=== PATIENT | male | born 1930 | race Caucasian/White ===

== ENCOUNTER 2017-01-21 08:44 | Inpatient (IN) ==
[2017-01-21] MEDS ORDERED: ASPIRIN 325 MG TABLET PO STA (09:18)
--- NOTE | 2017-01-21 09:20 | EKG Report ---
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
[2017-01-21] MEDS ORDERED: ASPIRIN 325 MG TABLET ONE (09:22)
[2017-01-21 09:25] LABS: Basophils % 0.3 % (0.0-0.8); Eosinophils # 1.4 10*3/uL (0.0-0.87); Eosinophils % 14.2 % (0.00-10.9); Hematocrit 40.1 VOL% (42.0-52.0); Hemoglobin 13.4 GM/DL (14.0-18.0); Immature Granulocytes % 0.2 %; Immature Granulocytes Absolute 0.02 #; Lymphocytes # 3.2 10*3/uL (1.4-4.0); Lymphocytes % 32.2 % (21.2-54.2); Mean Corpuscular HGB Conc 33.4 GM/DL (32-36); Mean Corpuscular Hemoglobin 30 PG (27-34); Mean Corpuscular Volume 90.5 FL (87-102); Monocytes # 0.6 10*3/uL (0.11-0.8); Monocytes % 6.1 % (1.7-12.7); Neutrophils # 4.7 10*3/uL (1.4-7.4); Platelet Count 169 T/CUMM (130-400); Red Blood Count 4.43 MC/CUMM (3.8-5.5); Red Cell Distribution Width 13.1 % (9.3-17.3)
--- NOTE | 2017-01-21 09:27 | Emergency Department Note ---
Arturo Logan Gwan, am scribing for, and in the presence of, Minh Ovalles MD 09:21 . Charlette Logan James D, MD, personally performed the services described in this documentation, ascribed by Fabian Morris in my presence, and it is both accurate and complete 925 . Arrival - Arrival Chief Complaint: Chest Pain Stated Complaint: heart rate low;sent over by [facility] Nursing Triage Note: pain in center of chest that started last night at rest[facility] for [facility] heart rate. pt reports sob and feeling tired too. Mode of Arrival: Wheelchair Limitations: No Limitations Source: Patient, Old Records Reviewed, RN Notes Reviewed - History of Present Illness HPI Narrative: Pt is a 86 y/o male who presents to the ED with a c/o chest pain with an onset 2300 last night. Patient stated [facility] and was prompted to report to the ED for further evaluation of bradycardia. His associated sxs have been SOB, lightheadedness when he stands up and fatigue. Patient confirmed that he is being followed by physicians at [facility] in [place]. He denies being on any blood thinners. Pt has a PMHx of cardiac dysrhythmia, HTN, dyslipidemia and hiatal hernia. No other problems/complaints reported in ED. Consistency: constant Severity: moderate Allergies/Adverse Reactions: Allergies Allergy/AdvReac Type Severity Reaction Status Date / Time Penicillins Allergy Unknown/Unable Verified 01/21/17 08:51 to obtain Review of System - Review of System 12 point system: reviewed and no additional remarkable complaints except as stated - Review of System Constitutional: Absent: chills, diaphoresis, fever Eyes: Absent: discharge, pain Head/Ears/Nose/Throat: Absent: earache Respiratory: Present: as per HPI, other (shortness of breathe) Cardiovascular: Present: as per HPI, chest pain Gastrointestinal: Absent: abdominal pain, nausea, vomiting, diarrhea Genitourinary male: Absent: urgency, dysuria Musculoskeletal: Absent: arm pain, back pain, leg pain, neck pain Skin: Absent: rash Neurological: Absent: headache, weakness Medical,Surgical,& Family Hx - Medical History Cardio: History of: Cardiac Dysrhythmia, Hypertension Endocrine: History of: Dyslipidemia Gastrointestinal: History of: GI Problems (hiatal hernia) - Social History Smoking Status: Former smoker Exam Physical Examination: GENERAL: This is a well-nourished, well-developed white male in no apparent distress. VITAL SIGNS: HEENT: Head is normocephalic and atraumatic. Pupils are equally round and reactive to light. Extraocular movement are intact. Oropharynx is benign with moist mucous membranes. NECK: Neck is soft and supple without tenderness. There are no masses. There is no lymphadenopathy. LUNGS: Lungs are clear to auscultation bilaterally. Chest rises symmetrically. There is no chest wall tenderness. CV: Heart is slow rate and rhythm without murmurs, rubs, or gallops. ABDOMEN: Abdomen is soft, non-tender to palpation. There are no abnormal masses palpated. There is no organomegaly. Bowel sounds are present and active. SKIN: Skin is warm and dry. No rash. EXTREMITIES: Patient has full range of motion without tenderness. There is no pedal edema. NEUROLOGIC: Awake, alert, and oriented x4. Cranial nerves II through XII are grossly intact. There are no motorsensory deficits. PSYCHIATRIC: Normal affect. Normal mood. Vital Signs: Vital Signs Temperature 97.1 F L 01/21/17 08:47 Pulse Rate 35 L 01/21/17 10:30 Respiratory Rate 18 01/21/17 10:30 Blood Pressure 170/62 01/21/17 10:30 O2 Sat by Pulse Oximetry 98 01/21/17 10:30 Course - Consultations Consultation #1: Discussed with Dr. Thorne. Patient will be seen in the emergency department. Time: 09:27 Results - Labs CBC & BMP: 01/21/17 09:03 01/21/17 09:03 Lab Results: I have reviewed the patients labs Labs: Laboratory Tests 01/21/17 01/21/17 09:03 09:03 WBC 10.0 RBC 4.43 Hgb 13.4 L Hct 40.1 L Plt Count 169 Eos % (Auto) 14.2 H Eos # (Auto) 1.4 H Segmented Neutrophils 42 L Eosinophils 14 H INR 1.1 PT Patient/Control Mix 11.2 Circ Anticoag PTT 26.3 Laboratory Tests 01/21/17 09:03 Sodium 138 Potassium 4.2 Chloride 107 Carbon Dioxide 25 BUN 22 H Creatinine 1.20 Glucose 140 H Laboratory Tests 01/21/17 09:03 TSH 3rd Generation 2.980 - EKG EKG results: interpreted by ERMD - Impressions EKG: Complete heart block with ventricular rate of 38, atrial rate is 100. - Diagnostic Findings Procedure: Chest x-ray: image reviewed by me (Mild cardiomegaly, no infiltrates , no pleural effusions.) Disposition Clinical Impression: Third degree AV block Case discussed with: patient Disposition: Still a Patient Condition: Guarded Time of Disposition: 09:26
[2017-01-21 09:36] LABS: INR 1.1; PT Patient Result 11.2 SECS; Partial Thromboplastin Time 26.3 SECS (0-40)
--- NOTE | 2017-01-21 09:42 | XRay Report ---
Referring Physician: Minh Ovalles Exam: XR chest 1V portable Date: January 21, 2017 at 9:27 AM Reason: Chest pain Comparison: Chest 2 views May 28, 2016 Findings: The cardiac silhouette is borderline enlarged, and there is minimal bibasilar atelectasis. No pneumothorax or pleural effusion is identified. No acute osseous process is seen. Impression: 1. The cardiac silhouette is borderline enlarged. This could reflect borderline cardiomegaly or a mild pericardial effusion. 2. Minimal bibasilar atelectasis. PROCEDURE INTERPRETED AT [facility] DEPARTMENT OF RADIOLOGY Final Report Signed by: Dr. Chayito Whalen
[2017-01-21 09:55] LABS: Eosinophils 14 % (0-10); Lymphocytes 30 % (20-55); Segmented Neutrophils 42 % (50-85); Total Cells Counted 100
[2017-01-21 09:56] LABS: Hypochromasia 1+; Platelet Estimate Normal
[2017-01-21 10:00] LABS: Albumin 3.8 G/DL (3.4-5.0); Bilirubin,Total 0.7 MG/DL (0.2-1.0); Osmolality,Calculated 279.7 MOS/KG (273-304); Potassium 4.2 MMOL/L (3.5-5.1); Total Protein 7.3 G/DL (6.4-8.3)
[2017-01-21] MEDS ORDERED: MAGNESIUM SULF RIDER 2 GM in PREMIX 1 EACH IV PRN (10:00)
[2017-01-21] MEDS ORDERED: ZALEPLON 5 MG CAPSULE PO PRN (10:00)
[2017-01-21] MEDS ORDERED: DOCUSATE SODIUM 100 MG CAPSULE PO PRN (10:00)
[2017-01-21] MEDS ORDERED: ONDANSETRON 4 MG/2 ML VIAL IV PRN (10:00)
[2017-01-21] MEDS ORDERED: MAGNESIUM SULF RIDER 4 GM in PREMIX 1 EACH IV PRN (10:00)
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
[2017-01-21] MEDS ORDERED: ATORVASTATIN 20 MG TABLET PO STA (10:25)
[2017-01-21] MEDS ORDERED: ceFAZolin 1,000 MG VIAL IRRIG ONE (11:33)
[2017-01-21] MEDS: LOSARTAN 50 MG TABLET PO SCH (11:51)
[2017-01-21] MEDS: MAGNESIUM OXIDE 400 MG TABLET PO SCH (11:52)
[2017-01-21] MEDS: ISOSORBIDE MONONITRATE 30 MG TABLET PO SCH (11:52)
[2017-01-21] MEDS ORDERED: DEXTROSE 5% NACL 0.45% 1,000 ML IV SCH (12:00)
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
--- NOTE | 2017-01-21 13:16 | EKG Report ---
Stationary ECG Study 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
[2017-01-21] MEDS ORDERED: VANCOMYCIN 500 MG VIAL IRRIG ONE (13:24)
[2017-01-21] MEDS ORDERED: VANCOMYCIN INJ 1,000 MG in SODIUM CHLORIDE 0.9% 250 ML IV ONE (13:24)
--- NOTE | 2017-01-21 15:07 | EKG Report ---
Stationary ECG Study [facility] Test Date: 01/21/2017 3:08:01 PM Pat Name: SHANI FRASER Department: Room: 130 Gender: M Cath Laboratory Technician: PIERRE : 1930 Requested by: Minh Pa Order Number: [id number] Reading MD: HORTENCIA CRUZ Intervals [place] Rate: 35 P: 999 [place]: 0 QRS: 102 QRSD: 153 T: -81 QT: 579 QTc: 479 Interpretive Statements SINUS RHYTHM WITH THIRD DEGREE AV BLOCK MARKED RIGHT AXIS DEVIATION INTRAVENTRICULAR CONDUCTION DELAY Electronically Signed On 01-24-17 10:29:07 CDT by HORTENCIA CRUZ [id number]
--- NOTE | 2017-01-21 15:07 | History and Physical Update ---
Sedation H&P Update - History and Physical H&P was reviewed, the patient examined and there: are no changes in the patients condition since last H&P was completed. - Dictation Physical: refer to H&P completed by admitting physician - Physical Exam Mental Status: alert and oriented Heart: other (bradycardia) Lung: clear to auscultation Abdomen: within normal limits Vitals: within normal limits - Sedation Plan for Sedation: moderate Patient Consent: Procedure disscussed with patient and patinet has consented., Risks and benefits were discussed with patient,including infection,, bleeding, injury to surrounding structures, seizure, temporary nerve, Patient understands and accepts potential risks/benefits and agrees to ASA Class: IV Airway Assessment: Class II: Soft palate, uvula, fauces visible
[2017-01-21] MEDS ORDERED: HEPARIN/NACL 0.9% 2 UNITS/ML 500 ML IV ONE (15:34)
[2017-01-21] MEDS ORDERED: LIDOCAINE 1% 20 ML VIAL ONE (15:35)
[2017-01-21] MEDS ORDERED: VANCOMYCIN 500 MG VIAL ONE (15:36)
[2017-01-21] MEDS ORDERED: MIDAZOLAM 2 MG/2 ML VIAL ONE (15:47)
[2017-01-21] MEDS ORDERED: fentaNYL 100 MCG/2 ML VIAL ONE (15:48)
[2017-01-21] MEDS ORDERED: TISSUE ADHESIVE 1 EACH APPLICATOR TOP ONE (16:52)
[2017-01-21] MEDS ORDERED: oxyCODONE/ACETAMINOPHEN 5-325 MG TABLET PO PRN (17:00)
--- NOTE | 2017-01-21 17:11 | Cardiac Pacemaker ---
- Preoperative diagnosis Date of Procedure:: 01/21/17 Preoperative Diagnosis: Documented nonreversible symptomatic bradycardia due to , third degree atrioventricular block Post-op diagnosis: same Procedure: PROCEDURE SUMMARY DDD pacemaker implant from left cephalic vein access. PLAN Bed rest for 4 hours. Routine post pacemaker implant site care and activity restrictions. Do not remove pressure dressing until AM. Portable CXR, EKG stat. CXR PA/Lat, device interrogation in AM. Vancomycin 1g iv. x1. PROCEDURE Informed consent was obtained and a timeout was performed prior to the procedure. The patient was continuously monitored by ECG, pulse oxymetry and NIBP. 1g iv. Vancomycin was administered prior to the procedure for antibiotic prophylaxis. Moderate conscious sedation was initiated and maintained with iv. Versed and Fentanyl, for 65 minutes. The left pectoral area was meticulously prepared with ChloroPrep surgical scrub. Sterile draping was applied and Ioban was used to cover the operation site. The image intensifier was draped with a sterile bag and positioned over the patient's chest. After infiltration with 1% lidocaine, an incision was made in the left infraclavicular area, parallel to the deltopectoral groove. The incision was carried down to the level of the pectoral fascia. A subcutaneous pocket was then created with electrocautery and blunt dissection. Hemostasis was then achieved with electrocautery. The cephalic branch of the left axillary vein was isolated, as it coursed in the deltopectoral groove, and circumferential ties were placed around it. The distal tie was ligated. A small venotomy was performed, and a long hydrophylic guidewire was introduced and advanced into the inferior vena cava. A 9 Fr sheath was introduced over the guidewire. The dilator was removed. The right ventricular pacemaker lead was introduced through the sheath. The sheath was then peeled away. The curved stylet was used to move the lead into the right ventricular outflow tract. The stylet was then replaced with a straight stylet and the lead was moved into a stable position on the right ventricular septum. Adequate sensing and pacing threshold was confirmed. The active fixation mechanism was then deployed. Stable signal and pacing threshold was noted, with decrease in pacing impedance. No extracardiac stimulation was noted with high output pacing. The lead was then anchored to the subcutaneous tissue with 2-0 nonabsorbable suture, using the anchoring sleeve near the point of entry to the vein. Another 9 Fr sheath was introduced over the retained guidewire. The dilator was removed. The right atrial pacemaker lead was introduced through the sheath. The sheath was then peeled away. A straight stylet was used to move the lead into the right atrium. The stylet was then replaced with a curved J stylet and the lead was moved into a stable position in the right atrial appendage. Adequate sensing and pacing threshold was confirmed. The active fixation mechanism was then deployed. Stable signal and pacing threshold was noted, with decrease in pacing impedance. No extracardiac stimulation was noted with high output pacing. The lead was then anchored to the subcutaneous tissue with 2-0 nonabsorbable suture, using the anchoring sleeve near the point of entry to the vein. The retained guidewire was removed. The proximal tie on the cephalic vein was then ligated to provide hemostasis. The pacemaker generator was attached to the leads and sealed in the prescribed manner. The wound was flushed with Vancomycin . The generator was placed into the pocket and tied to the pectoral fascia using 2-0 nonabsorbable suture. Stable lead positions were confirmed with fluoroscopy. The wound was closed using a double layer of 2-0 absorbable Vicryl sutures, followed by a subcuticular running suture with 4-0 Monocryl, then Exofin. A sterile, then a pressure dressing was applied. The device was then interrogated and programmed as detailed below. Device Type SN Location Medtronic Advisa DR DDD pacemaker [id number] Left infraclavicular Lead Position Type SN P/R Threshold Impedance RA RA appendage Medtronic 5076-52 [id number] 4.4 mV 0.6 V @ 0.5 ms 670 Ohm RV RV septum Medtronic 5076-58 [id number] 10.3 mV 0.6 V @ 0.5 ms 760 Ohm Bradycardia settings DDDR 60/110 The implanted system is MRI conditional. Anesthesia: moderate conscious sedation Surgeon / Physician: Vern Blake E Commerce Developer: other (Lynn) Estimated blood loss: minimal Specimens: none sent Condition: stable Disposition: ICU/CCU - Medications / Follow-up
--- NOTE | 2017-01-21 17:15 | History and Physical Update ---
Sedation H&P Update - History and Physical H&P was reviewed, the patient examined and there: are no changes in the patients condition since last H&P was completed. - Dictation Physical: refer to H&P completed by admitting physician - Physical Exam Mental Status: alert and oriented Heart: regular rate and rhythm Lung: clear to auscultation Abdomen: within normal limits Vitals: within normal limits - Sedation Plan for Sedation: minimal Patient Consent: Procedure disscussed with patient and patinet has consented., Risks and benefits were discussed with patient,including infection,, bleeding, injury to surrounding structures, seizure, temporary nerve, Patient understands and accepts potential risks/benefits and agrees to, proceed. ASA Class: II Airway Assessment: Class II: Soft palate, uvula, fauces visible
--- NOTE | 2017-01-21 18:12 | XRay Report ---
History: Pacemaker lead placement Date: 01/21/2017 at 5:32 PM Study: Chest x-ray AP portable Comparison exam: 01/21/2017 at 9:29 AM A left subclavian dual lead transvenous pacemaker device is in generally satisfactory position and is generally intact. There is no evidence of pneumothorax. The mediastinal contours are stable. The pulmonary vasculature is not engorged. There is stable mild cardiomegaly. The lungs are well expanded and generally clear. There is no gross pleural effusion. There is [id number] thoracic spondylosis. Impression: No evidence of a pneumothorax following pacemaker placement. Otherwise unchanged PROCEDURE INTERPRETED AT [facility] [place] DEPARTMENT OF RADIOLOGY Final Report Signed by: Dr. Flavia Wolf
[2017-01-21 18:51] LABS: Magnesium 1.9 MG/DL (1.8-2.4)
[2017-01-21 18:59] LABS: Troponin I Only 0.148 NG/ML (0.00-0.045)
[2017-01-22] MEDS ORDERED: VANCOMYCIN INJ 1,000 MG in SODIUM CHLORIDE 0.9% 250 ML IV ONE (05:01)
[2017-01-22 05:35] LABS: Basophils % 0.3 % (0.0-0.8); Eosinophils # 1.1 10*3/uL (0.0-0.87); Eosinophils % 10.5 % (0.00-10.9); Hematocrit 39.5 VOL% (42.0-52.0); Hemoglobin 13.1 GM/DL (14.0-18.0); Immature Granulocytes % 0.3 %; Immature Granulocytes Absolute 0.03 #; Lymphocytes # 2.5 10*3/uL (1.4-4.0); Lymphocytes % 23.1 % (21.2-54.2); Mean Corpuscular HGB Conc 33.2 GM/DL (32-36); Mean Corpuscular Hemoglobin 30 PG (27-34); Mean Corpuscular Volume 89.8 FL (87-102); Monocytes # 0.7 10*3/uL (0.11-0.8); Monocytes % 6.5 % (1.7-12.7); Neutrophils # 6.3 10*3/uL (1.4-7.4); Neutrophils % 59.3 % (38.7-73.9); Platelet Count 153 T/CUMM (130-400); Red Cell Distribution Width 12.9 % (9.3-17.3); White Blood Count 10.6 T/CUMM (4-12)
[2017-01-22 06:14] LABS: Albumin 3.3 G/DL (3.4-5.0); Bilirubin,Total 0.8 MG/DL (0.2-1.0); Calcium 8.3 MG/DL (8.5-10.1); Osmolality,Calculated 287.8 MOS/KG (273-304); Potassium 4.1 MMOL/L (3.5-5.1); Risk Ratio 2.4; Total Protein 6.1 G/DL (6.4-8.3); VLDL CHOLESTEROL 13.4 MG/DL
[2017-01-22 06:15] LABS: Calcium 8.2 MG/DL (8.5-10.1); Magnesium 1.8 MG/DL (1.8-2.4)
--- NOTE | 2017-01-22 06:54 | XRay Report ---
2 view chest. Indication: Pacemaker revision. Comparison: January 21, 2017. The heart is mildly enlarged with left ventricular hypertrophy. Cardiac hardware appears to be in satisfactory position. The pulmonary vasculature is normal. The lung lebron are hyperexpanded and fibrotic changes are noted. No consolidation, pneumothorax, or pleural effusion. Demineralization and degenerative change involving the spinal column and shoulders. Impression: No acute abnormality. PROCEDURE INTERPRETED AT [facility] DEPARTMENT OF RADIOLOGY Final Report Signed by: Dr. Maria Eugenia Phillips
--- NOTE | 2017-01-22 07:54 | EKG Report ---
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
--- NOTE | 2017-01-22 08:22 | ECHO Report ---
Daniel Peterson Exam Date: 01/21/2017 11:41 Referring Physician: Technologist: Adelaide Oakley RDCS Age: 86 Ht (in): 69 Wt (lb): 154 Gender: M Exam Location: [facility] Echo Indications: Atrioventricular block, complete, Chest pain, unspecified, Essential (primary) hypertension, Chronic fatigue, unspecified, Shortness of breath, Dyslipidemia BP: 175 / 62 HR: 36 Rhythm: Other Technical Quality: Fair IMPRESSIONS At least moderately reduced LV systolic function with regional wall motion as described below. Ejection fraction 30-40%. Diastolic parameters unable to be assessed due to underlying heart block. Mild biatrial enlargement. Mild concentric left ventricular hypertrophy. Mild mitral and tricuspid regurgitation. MEASUREMENTS (Male / Female) Normal Values 2D ECHO LV Diastolic Diameter PLAX 4.5 cm 4.2 - 5.9 / 3.9 - 5.3 cm LV Systolic Diameter PLAX 3.3 cm LV Fractional Shortening PLAX 27.0 % IVS Diastolic Thickness 1.3 cm 0.6 - 1.0 / 0.6 - 0.9 cm LVPW Diastolic Thickness 1.3 cm 0.6 - 1.0 / 0.6 - 0.9 cm RV Internal Dim ED PLAX 3.7 cm Aortic Root Diameter 2.9 cm LA Systolic Diameter LX 4.7 cm 3.0 - 4.0 / 2.7 - 3.8 cm DOPPLER TR Peak Velocity 384.0 cm/s TR Peak Gradient 59.0 mmHg FINDINGS Left Ventricle Normal left ventricular cavity size. Mild left ventricular hypertrophy. Profound bradycardia hinders regional wall motion assessment, but overall Left ventricular ejection fraction is estimated at 30-40%. The apex and adjacent distal eaton appear severely hypokinetic if not akinetic. Right Ventricle The right ventricle is normal in size and function. Right Atrium Moderately increased right atrial size. Left Atrium Moderately increased left atrial size. Mitral Valve Morphologically normal mitral valve. Mild mitral valve regurgitation. Aortic Valve Morphologically normal aortic valve without significant sclerosis or stenosis. There is no aortic regurgitation. Tricuspid Valve Morphologically normal tricuspid valve. Mild tricuspid valve regurgitation. Tricuspid regurgitation velocities suggest a PAP of 69 mmHg. Pulmonic Valve Morphologically normal pulmonic valve without significant stenosis. There is no pulmonic regurgitation. Pericardium Normal pericardium without effusion. Aorta Normal ascending aorta dimension. Coby Thorne MD (Electronically Signed) Final Date: 22 January 2017 08:20
[2017-01-22] MEDS: ISOSORBIDE MONONITRATE 30 MG TABLET PO SCH (08:26)
[2017-01-22] MEDS: LOSARTAN 50 MG TABLET PO SCH (08:27)
[2017-01-22] MEDS: PANTOPRAZOLE 40 MG TABLET PO SCH (08:27)
[2017-01-22] MEDS: MAGNESIUM OXIDE 400 MG TABLET PO SCH (08:27)
--- NOTE | 2017-01-22 08:42 | Electrophysiology Progress Not ---
Assessment and Plan (1) Third degree AV block Status: Acute Assessment and plan: 86-year-old male, with symptomatic bradycardia, complete heart block, escape rhythm of 75 bpm, with IVCD. Hypertension, hyperlipidemia. Cardiomyopathy. 01/21/2017: DDD PM implant from L cephalic access -Follow-up device interrogation. -Start metoprolol 25 mg twice daily for cardiomyopathy, suspected CAD. -Continue Cozaar. -Ischemia evaluation pending. -Keep the occlusive dressing in place for 6 more days, keep the implant site dry. -Follow-up with EP in 1 week. Current Visit: Yes (2) Hypertension Status: Chronic Current Visit: Yes (3) Dyslipidemia Status: Chronic Current Visit: Yes (4) Chest pain Status: Acute Current Visit: Yes Electrophysiology Subjective Interval history: He is feeling better. No chest pain. No pacemaker hematoma. Removed the pressure dressing. Chest x-ray, telemetry shows normal lead positions and device function. The device interrogation pending. Exam - Constitutional Vitals: Period Temp Pulse Resp BP Sys/Barry Pulse Ox Last 24 Hr 96.8 F-98.4 F 35-77 10-35 108-205/42-95 91-98 General appearance: normal weight, no acute distress - Head Head exam: Present: normal inspection, normocephalic - Eye Eye exam: Absent: conjunctival injection Pupils: Absent: dilated - ENT ENT exam: Present: normal external ear exam - Neck Neck exam: Present: normal inspection - Respiratory Respiratory exam: Present: clear to auscultation bilaterally - Cardiovascular Cardiovascular exam: Present: regular rate and rhythm - GI/Abdominal GI/Abdominal exam: Present: normal bowel sounds, soft. Absent: distended - Extremities Exam Extremities exam: Present: normal inspection, normal capillary refill. Absent: edema - Neurological Exam Neurological exam: Present: alert, oriented X3 - Psychiatric Psychiatric exam: Present: normal affect, normal mood - Skin Skin exam: Present: normal color, warm. Absent: cyanosis Results - Labs CBC & BMP: 01/22/17 05:25 01/22/17 05:25 Lab Results: I have reviewed the past 24 hour labs Quality Measures - VTE Contraindication to Pharmacological VTE Prophylaxis: High Risk of Bleeding - Stroke Symptom Onset Unknown: No Specialty Discharge - Follow Up or Referrals - Speciality Discharge Instructions Cardiology Instructions: FU with EPdr. Blake in 1 week
[2017-01-22] MEDS: METOPROLOL TARTRATE 25 MG TABLET PO SCH ×2 (09:17→20:19)
[2017-01-22] MEDS ORDERED: SODIUM CHLORIDE 0.9% 1,000 ML IV SCH ×2 (10:00→11:47)
[2017-01-22] MEDS ORDERED: diphenhydrAMINE CAP 50 MG CAPSULE PO ONE (10:30)
[2017-01-22] MEDS ORDERED: DIAZEPAM 5 MG TABLET PO ONE (10:30)
[2017-01-22] MEDS ORDERED: LIDOCAINE 1% 20 ML VIAL ONE (10:36)
[2017-01-22] MEDS ORDERED: MEPERIDINE 25 MG/1 ML VIAL ONE (10:36)
[2017-01-22] MEDS ORDERED: MIDAZOLAM 2 MG/2 ML VIAL ONE (10:36)
[2017-01-22] MEDS ORDERED: ASPIRIN 325 MG TABLET ONE (10:53)
[2017-01-22] MEDS ORDERED: HEPARIN 5,000 UNIT/1 ML VIAL ONE (11:05)
[2017-01-22] MEDS ORDERED: ACETAMINOPHEN/CODEINE 300-30 MG TABLET PO PRN (11:43)
--- NOTE | 2017-01-22 11:53 | Operative Note ---
Date of procedure: 01/22/17 Procedure Preformed: Left heart cath Coronary angiography Left ventriculography Angiogram of the right femoral artery Angio-Seal of the right femoral artery-successful Surgeon / Physician: Lucho Gambino Curriculum Designer: Abdiel Leblanc Post-op diagnosis: same (Progressive angina, abnormal EKG) Findings: Impression: Significant disease at the bifurcation of the PDA/posterolateral and there is also disease distal to that area in the rca-this is a large vessel, but is heavy calcification and some moderate tortuosity before these lesions, making it a difficult lesion to do PCI Moderate distal distal left main disease--? 40%, smooth Some ventricularization of pressure with engagement of the left main-however angiographically appears the patient does not have critical ostial left main disease Moderate disease in LAD--- 50-60%, tandem Critical disease in a small circumflex-1 mm in diameter 90%, vessel which is too small to do PCI-- Moderate global left ventricular systolic dysfunction, LVEF 35-40% Mild to moderate mitral regurgitation Low LVEDP, 0 mmHg Angiogram the right femoral artery Angio-Seal of the right femoral artery- successful Plan/recommendations: The patient will have risk factors optimized. The patient will be on antiplatelet medications to include aspirin indefinitely . I will have Dr. Thorne reviewed the angiograms. She can assess whether a difficult intervention of the right coronary could be considered versus considering bypass versus medical therapy. Follow-up will be scheduled. Addenda: I saw the patient post-cath. the groin puncture site and distal pulse are stable. vital signs are stable and the patient will be observed closely overnight. Specimens: none sent Estimated blood loss: minimal Condition: stable Anesthesia: local, conscious sedation Disposition: ICU
--- NOTE | 2017-01-22 11:56 | Cardiology Operative Report ---
Date of Procedure:: 01/22/17 Post-op diagnosis: same (Progressive angina, abnormal EKG) Procedure: Date of procedure: 01/22/17 Procedure Preformed: Left heart cath Coronary angiography Left ventriculography Angiogram of the right femoral artery Angio-Seal of the right femoral artery-successful Surgeon / Physician: Lucho Gambino Computational Sciences Professor: Abdiel Leblanc Post-op diagnosis: same (Progressive angina, abnormal EKG) procedure: The patient was prepped and draped in usual manner. Entered the right femoral artery via the Seldinger technique. I used a sheath and then used a JL4 and engaged left coronary. Multiple views were taken. I then exchanged for a JR4. Multiple views of the right coronary were taken. I then exchanged for an angled pigtail. I crossed the valve. Left ventricular end-diastolic pressures measured. Left ventriculography was done. Left ventricle pullback was done. The catheters were then removed from the patient. Please see the cath data sheets for the details of catheters used. Complications: None Hemodynamic data: LVEDP was 0 mmHg. Angiographic data: The left main coronary was large and had a mild to moderate distal lesion. It was 40% narrowed and smooth. The left anterior descending artery was moderate to large size. It was heavily calcified in the proximal mid part/segment. There were tandem 50 to at most 60 % lesions. Moderate. Otherwise, there are minimal luminal irregularities. The left circumflex system was small. There was a proximal 80% narrowing of the vessel is diminutive. It is less than 1.5 mm in diameter. The right coronary artery was large in size, dominant vessel with the PDA. It was at least moderately calcified in the proximal and mid segment with at least a moderate amount of tortuosity. At the PDA/posterolateral bifurcation, there is a 90% narrowing in each branch of this lesion. Also, going off the posterolateral, there is another lesion in the midportion which supplied some of the posterior lateral wall. Right coronary artery was a large which is why the circumflex was so diminutive. CARRASCO left ventriculography revealed abnormal global/regional left ventricle systolic function. Overall ejection fraction was about 35-40%. There is mild to moderate mitral regurgitation. Angiogram of the right femoral artery revealed the puncture site to be in a large vessel, above the bifurcation. It was suitable for Angio-Seal. Impression: Significant disease at the bifurcation of the PDA/posterolateral and there is also disease distal to that area in the rca-this is a large vessel, but is heavy calcification and some moderate tortuosity before these lesions, making it a difficult lesion to do PCI Moderate distal distal left main disease--? 40%, smooth Some ventricularization of pressure with engagement of the left main-however angiographically appears the patient does not have critical ostial left main disease Moderate disease in LAD--- 50-60%, tandem Critical disease in a small circumflex-1 mm in diameter 90%, vessel which is too small to do PCI-- Moderate global left ventricular systolic dysfunction, LVEF 35-40% Mild to moderate mitral regurgitation Low LVEDP, 0 mmHg Angiogram the right femoral artery Angio-Seal of the right femoral artery- successful Plan/recommendations: The patient will have risk factors optimized. The patient will be on antiplatelet medications to include aspirin indefinitely . I will have Dr. Thorne reviewed the angiograms. She can assess whether a difficult intervention of the right coronary could be considered versus considering bypass versus medical therapy. Follow-up will be scheduled. Addenda: I saw the patient post-cath. the groin puncture site and distal pulse are stable. vital signs are stable and the patient will be observed closely overnight. Specimens: none sent Estimated blood loss: minimal Condition: stable Anesthesia: local, conscious sedation Disposition: ICU Additional CC's: Coby Thorne Anesthesia: local, moderate conscious sedation Surgeon / Physician: Lucho Gambino Computational Sciences Professor: other Estimated blood loss: minimal Specimens: none sent Condition: stable Disposition: ICU/CCU
[2017-01-22] MEDS: ALUMINUM/MAGNES/SIMETH MAX STR 30 ML UDCUP PO PRN (16:13)
--- NOTE | 2017-01-22 16:19 | EKG Report ---
Stationary ECG Study [facility] Test Date: 01/22/2017 4:20:52 PM Pat Name: SHANI FRASER Department: Room: 130 Gender: M Licensed Direct Entry Midwife: MALVIN : 1930 Requested by: Terrie Person Order Number: [id number] Reading MD: SALUD REID Intervals [place] Rate: 72 P: 67 MA: 191 QRS: 77 QRSD: 175 T: -85 QT: 475 QTc: 499 Interpretive Statements ELECTRONIC VENTRICULAR PACEMAKER ABNORMAL RHYTHM ECG Electronically Signed On 01-24-17 15:15:06 CDT by SALUD REID [email or web address]
[2017-01-22 17:37] LABS: Troponin I Only 0.055 NG/ML (0.00-0.045)
--- NOTE | 2017-01-22 20:31 | EKG Report ---
Stationary ECG Study [facility] Test Date: 01/22/2017 8:32:41 PM Pat Name: SHANI FRASER Department: Room: 130 Gender: M Lead Mobile Developer: AM : 1930 Requested by: Terrie Person Order Number: [id number] Reading MD: SALUD REID Intervals [place] Rate: 73 P: 55 DC: 190 QRS: 58 QRSD: 174 T: 236 QT: 469 QTc: 496 Interpretive Statements ELECTRONIC VENTRICULAR PACEMAKER ABNORMAL RHYTHM ECG Electronically Signed On 01-24-17 15:20:57 CDT by SALUD REID [email or web address]
[2017-01-22 23:35] LABS: Troponin I Only 0.076 NG/ML (0.00-0.045)
[2017-01-23 06:20] LABS: Basophils % 0.2 % (0.0-0.8); Eosinophils # 1.1 10*3/uL (0.0-0.87); Eosinophils % 9.2 % (0.00-10.9); Hematocrit 37.7 VOL% (42.0-52.0); Hemoglobin 12.8 GM/DL (14.0-18.0); Immature Granulocytes % 0.3 %; Immature Granulocytes Absolute 0.04 #; Lymphocytes # 2.8 10*3/uL (1.4-4.0); Lymphocytes % 24.5 % (21.2-54.2); Mean Corpuscular Hemoglobin 30 PG (27-34); Mean Corpuscular Volume 88.7 FL (87-102); Mean Platelet Volume 11.5 FL (9.6-12.0); Monocytes # 0.8 10*3/uL (0.11-0.8); Monocytes % 7.2 % (1.7-12.7); Neutrophils # 6.7 10*3/uL (1.4-7.4); Neutrophils % 58.6 % (38.7-73.9); Platelet Count 151 T/CUMM (130-400); Red Blood Count 4.25 MC/CUMM (3.8-5.5); Red Cell Distribution Width 12.8 % (9.3-17.3); White Blood Count 11.5 T/CUMM (4-12)
[2017-01-23 06:54] LABS: Troponin I Only 0.076 NG/ML (0.00-0.045)
[2017-01-23 06:56] LABS: Calcium 7.9 MG/DL (8.5-10.1); Magnesium 2.1 MG/DL (1.8-2.4); Osmolality,Calculated 283.1 MOS/KG (273-304); Potassium 4.1 MMOL/L (3.5-5.1)
--- NOTE | 2017-01-23 07:47 | EKG Report ---
Stationary ECG Study [facility] Test Date: 01/23/2017 7:12:47 AM Pat Name: SHANI FRASER Department: Room: 130 Gender: M Program Development Specialist: PIERRE : 1930 Requested by: Terrie Person Order Number: [id number] Reading MD: SALUD REID Intervals [place] Rate: 67 P: 58 CA: 181 QRS: 71 QRSD: 169 T: 245 QT: 483 QTc: 498 Interpretive Statements ELECTRONIC VENTRICULAR PACEMAKER ABNORMAL RHYTHM ECG INTERPRETATION BASED ON A DEFAULT AGE OF 40 YEARS Electronically Signed On 01-25-17 13:15:34 CDT by SALUD REID [email or web address]
[2017-01-23] MEDS: PANTOPRAZOLE 40 MG TABLET PO SCH (09:12)
[2017-01-23] MEDS: LOSARTAN 50 MG TABLET PO SCH (09:12)
[2017-01-23] MEDS: MAGNESIUM OXIDE 400 MG TABLET PO SCH (09:12)
[2017-01-23] MEDS: ISOSORBIDE MONONITRATE 30 MG TABLET PO SCH (09:12)
[2017-01-23] MEDS: METOPROLOL TARTRATE 25 MG TABLET PO SCH (09:12)
--- NOTE | 2017-01-23 09:28 | Electrophysiology Progress Not ---
Assessment and Plan (1) Third degree AV block Status: Acute Assessment and plan: 86-year-old male, with symptomatic bradycardia, complete heart block, escape rhythm of 75 bpm, with IVCD. Hypertension, hyperlipidemia. Cardiomyopathy. 01/21/2017: DDD PM implant from L cephalic access -ICM, HTN. Increase metoprolol to 50 mg twice daily. Continue ARB. Start aspirin 81 mg daily -Severe CAD, LDLC 54. A statin may still be considered. -Paroxysmal A. fib. CHADSVASC 4. I recommend to start anticoagulation, if no intervention or surgery is planned. -His symptoms improved with the pacemaker implant. If revascularization is not urgent, an option would be to monitor his symptoms with medical management + PM , reassess in few weeks -Keep the occlusive dressing in place for 5 more days, keep the implant site dry. -Follow-up with EP in 1 week. Current Visit: Yes (2) Hypertension Status: Chronic Current Visit: Yes (3) Dyslipidemia Status: Chronic Current Visit: Yes (4) Chest pain Status: Acute Current Visit: Yes Electrophysiology Subjective Interval history: He is feeling fine. No chest pain. Blood pressure was elevated. LHC showed severe CAD, normal EDP. ICM. Normal pacemaker function on telemetry. No pacemaker hematoma. He had few short bursts of asymptomatic atrial fibrillation, since the pacemaker implant. Exam - Constitutional Vitals: Period Temp Pulse Resp BP Sys/Barry Pulse Ox Last 24 Hr 97.6 F-98.9 F 60-77 10-20 120-170/64-95 92-97 General appearance: normal weight, no acute distress - Head Head exam: Present: normal inspection, normocephalic - Eye Eye exam: Absent: conjunctival injection Pupils: Absent: dilated - ENT ENT exam: Present: normal external ear exam - Neck Neck exam: Present: normal inspection - Respiratory Respiratory exam: Present: clear to auscultation bilaterally - Cardiovascular Cardiovascular exam: Present: regular rate and rhythm - GI/Abdominal GI/Abdominal exam: Present: normal bowel sounds. Absent: distended - Extremities Exam Extremities exam: Present: normal inspection, normal capillary refill. Absent: edema - Back Exam Back exam: Present: normal inspection - Neurological Exam Neurological exam: Present: alert, oriented X3 - Psychiatric Psychiatric exam: Present: normal affect, normal mood - Skin Skin exam: Present: normal color, warm. Absent: cyanosis Results - Labs CBC & BMP: 01/23/17 05:07 01/23/17 05:07 Lab Results: I have reviewed the past 24 hour labs Quality Measures - VTE Contraindication to Pharmacological VTE Prophylaxis: High Risk of Bleeding - Stroke Symptom Onset Unknown: No Specialty Discharge - Follow Up or Referrals - Speciality Discharge Instructions Cardiology Instructions: Follow up with EPdr. Blake in 1 week
[2017-01-23] MEDS ORDERED: METOPROLOL TARTRATE 25 MG TABLET PO SCH (09:29)
[2017-01-23] MEDS: ASPIRIN EC 81 MG TABLET PO SCH (11:03)
--- NOTE | 2017-01-23 11:10 | Cardiology Progress Note ---
Addendum entered and electronically signed by Terrie Bowden NP 01/23/17 11: 25: Echo reveals EF 35%-40%, PAP 69mmHg. Original Note: <Terrie Bowden - Last Filed: 01/23/17 11:10> Assessment and Plan - Time spent with patient Time spent with patient: Greater than 30 minutes (1) Hypertension Status: Chronic Assessment and plan: See plan of care listed below Current Visit: Yes (2) Dyslipidemia Status: Chronic Assessment and plan: See plan of care listed below Current Visit: Yes (3) Risk for falls Status: Chronic Assessment and plan: See plan of care listed below Current Visit: Yes (4) Chest pain Status: Resolved Assessment and plan: See plan of care listed below Current Visit: Yes (5) Third degree AV block Status: Resolved Assessment and plan: See plan of care listed below Current Visit: Yes (6) Pacemaker Status: Resolved Assessment and plan: See plan of care listed below Current Visit: Yes (7) CAD (coronary artery disease) Status: Chronic Assessment and plan: See plan of care listed below Current Visit: Yes Cardiology - PN: Subj Interval history: CARDIOLOGY: [facility] [place] PCP: [facility] [place] SUMMARY: Mr. Peterson, 86WM, followed by cardiology at the [facility] in [place], [place], for prior history of syncope, history of "hole in heart"previously repaired 1968 at [facility]. History of hypertension, dyslipidemia, sedentary lifestyle. Patient presented to the emergency department at [facility] January 21, 2017 with complaints of chest pain and dizziness. He was found to be in third- degree heart block. He was taken to the cardiac catheterization lab by Dr. Blake the same day and underwent implantation of Medtronic dual chamber pacemaker. He tolerated the procedure well. Troponins were noted to be mildly elevated and he thus underwent elective cardiac catheterization January 22, 2017, performed by Dr. Gambino. (See report listed below). JANUARY 23, 2017: Overnight, patient has done well without chest pain, heaviness or tightness. He states that his breathing is nonlabored and he appears to be very comfortable. At this point, Dr. Thorne is considering medical management versus percutaneous intervention to the right coronary artery versus CABG. This morning, Mr. Peterson hopes that he can be treated medically he tells me. Right groin is soft, free of hematoma or bruit. Labs are stable including hemoglobin and hematocrit, creatinine. LDL 54. ASSESSMENT/PLAN: 1. COMPLETE HEART BLOCK - status post pacemaker implantation. No obvious hematoma. Dressing remains intact. 2. CAD - see plan of care listed above. Continue aspirin, beta blockade, MARCIANO inhibitor. Also taking a nitrate. We will add a low dose lipid-lowering agent. 3. HYPERTENSION - systolic blood pressure averaging 160s-170s. Will increase beta blockade today 4. DYSLIPIDEMIA - LDL 54. Start low-dose lipid-lowering agent given the severity of his CAD. 5. FALLS RISK - implement FALL PREVENTION protocol [facility] Impression: Significant disease at the bifurcation of the PDA/posterolateral and there is also disease distal to that area in the rca-this is a large vessel, but is heavy calcification and some moderate tortuosity before these lesions, making it a difficult lesion to do PCI Moderate distal distal left main disease--? 40%, smooth Some ventricularization of pressure with engagement of the left main-however angiographically appears the patient does not have critical ostial left main disease Moderate disease in LAD--- 50-60%, tandem Critical disease in a small circumflex-1 mm in diameter 90%, vessel which is too small to do PCI-- Moderate global left ventricular systolic dysfunction, LVEF 35-40% Mild to moderate mitral regurgitation Low LVEDP, 0 mmHg Angiogram the right femoral artery Angio-Seal of the right femoral artery- successful Exam (Progress Note) - Constitutional Vitals: Period Temp Pulse Resp BP Sys/Barry Pulse Ox Last 24 Hr 97.6 F-98.9 F 60-77 10-20 120-170/64-95 92-97 Exam: General: [Appears well with no apparent distress.] [Pleasant and cooperative. ] [Appears comfortable.] HEENT: [PERRL, normocephalic, atraumatic. Mucous membranes moist. No jaundice noted. Conjunctiva moist and clear, sclerae anicteric] Neck: No JVD/HJR, no thyromegaly or lymphadenopathy noted. No carotid bruit appreciated Cardiac: [Regular rate and rhythm.] [No murmur rub or gallop.] Chest: Several areas of excoriation. Symmetrical chest wall movements noted. Left upper chest dressing dry and intact, minimal edema. Lungs: [Clear to auscultation without accessory muscle use to assist the respiratory pattern.] Not requiring oxygen. Abdomen: Soft, bowel sounds normoactive. Nontender and nondistended. No abdominal bruit or thrill noted. No masses noted. Musculoskeletal: No fluid collection. Decreased range of motion is noted. Extremities: Left arm in sling. Right groin soft, free of hematoma. No clubbing, cyanosis noted. [ No edema noted.] Upper extremity pulses 2+. Lower extremity pulses 2+. Capillary refill less than 3 seconds. Skin: No unusual lesions or rashes. No skin breakdown appreciated. Neuro: Awake, alert and oriented 3. Moves all extremities well without hemiparesis or paralysis. No essential tremor is appreciated. Result/EKG - Labs CBC & BMP: 01/23/17 05:07 01/23/17 05:07 Lab Results: I have reviewed the past 24 hour labs Labs: Laboratory Results - last 24 hr 01/22/17 01/22/17 01/23/17 16:14 22:51 05:07 WBC 11.5 RBC 4.25 Hgb 12.8 L Hct 37.7 L MCV 88.7 MCH 30 MCHC 34.0 RDW 12.8 Plt Count 151 MPV 11.5 Neut % (Auto) 58.6 Lymph % (Auto) 24.5 [place] % (Auto) 7.2 Eos % (Auto) 9.2 Baso % (Auto) 0.2 Neut # (Auto) 6.7 Lymph # (Auto) 2.8 [place] # (Auto) 0.8 Eos # (Auto) 1.1 H Baso # (Auto) 0.0 Immature Gran % 0.3 Nucleated RBC % 0.0 Immature Gran # 0.04 Nucleated RBCs # 0.00 Sodium Potassium Chloride Carbon Dioxide Anion Gap BUN Creatinine GFR Calculation BUN/Creatinine Ratio Glucose Calculated Osmolality Calcium Magnesium Total Creatine Kinase 122 116 CK-MB (CK-2) 4.1 H 3.7 H Troponin I 0.055 H D 0.076 H D 01/23/17 01/23/17 05:07 05:07 WBC RBC Hgb Hct MCV MCH MCHC RDW Plt Count MPV Neut % (Auto) Lymph % (Auto) [place] % (Auto) Eos % (Auto) Baso % (Auto) Neut # (Auto) Lymph # (Auto) [place] # (Auto) Eos # (Auto) Baso # (Auto) Immature Gran % Nucleated RBC % Immature Gran # Nucleated RBCs # Sodium 142 Potassium 4.1 Chloride 108 H Carbon Dioxide 25 Anion Gap 13.1 BUN 14 Creatinine 0.90 GFR Calculation 82 BUN/Creatinine Ratio 15.00 Glucose 101 Calculated Osmolality 283.1 Calcium 7.9 L Magnesium 2.1 Total Creatine Kinase 126 CK-MB (CK-2) 3.5 Troponin I 0.076 H - Diagnostic Findings Procedure: Chest x-ray: report reviewed by me - EKG EKG results: interpreted by me EKG shows: sinus rhythm Quality Measures - VTE Contraindication to Pharmacological VTE Prophylaxis: High Risk of Bleeding - Stroke Symptom Onset Unknown: No <MatiCoby - Last Filed: 01/23/17 21:01> Cardiology - PN: Subj Interval history: I have personally interviewed and evaluated the patient, reviewed the chart and discussed medical decision-making with Practitioner Kal. I have read this note and agree with her documentation here in. Clinically he is feeling well. His anatomy at this point appears to be best suited for medical management. We' ll have to follow him clinically. He did not present with an acute coronary syndrome. We will transfer him to the floor and consider possible discharge tomorrow depending on his clinical evolution. Exam (Progress Note) - Constitutional Vitals: Period Temp Pulse Resp BP Sys/Barry Pulse Ox Last 24 Hr 98 F-99 F 61-96 10-31 97-172/63-95 93-97 Result/EKG - Labs CBC & BMP: 01/23/17 05:07 01/23/17 05:07 Labs: Laboratory Results - last 24 hr 01/22/17 01/23/17 01/23/17 22:51 05:07 05:07 WBC 11.5 RBC 4.25 Hgb 12.8 L Hct 37.7 L MCV 88.7 MCH 30 MCHC 34.0 RDW 12.8 Plt Count 151 MPV 11.5 Neut % (Auto) 58.6 Lymph % (Auto) 24.5 [place] % (Auto) 7.2 Eos % (Auto) 9.2 Baso % (Auto) 0.2 Neut # (Auto) 6.7 Lymph # (Auto) 2.8 [place] # (Auto) 0.8 Eos # (Auto) 1.1 H Baso # (Auto) 0.0 Immature Gran % 0.3 Nucleated RBC % 0.0 Immature Gran # 0.04 Nucleated RBCs # 0.00 Sodium 142 Potassium 4.1 Chloride 108 H Carbon Dioxide 25 Anion Gap 13.1 BUN 14 Creatinine 0.90 GFR Calculation 82 BUN/Creatinine Ratio 15.00 Glucose 101 Calculated Osmolality 283.1 Calcium 7.9 L Magnesium 2.1 Total Creatine Kinase 116 CK-MB (CK-2) 3.7 H Troponin I 0.076 H D 01/23/17 05:07 WBC RBC Hgb Hct MCV MCH MCHC RDW Plt Count MPV Neut % (Auto) Lymph % (Auto) [place] % (Auto) Eos % (Auto) Baso % (Auto) Neut # (Auto) Lymph # (Auto) [place] # (Auto) Eos # (Auto) Baso # (Auto) Immature Gran % Nucleated RBC % Immature Gran # Nucleated RBCs # Sodium Potassium Chloride Carbon Dioxide Anion Gap BUN Creatinine GFR Calculation BUN/Creatinine Ratio Glucose Calculated Osmolality Calcium Magnesium Total Creatine Kinase 126 CK-MB (CK-2) 3.5 Troponin I 0.076 H
[2017-01-23] MEDS ORDERED: METOPROLOL TARTRATE 50 MG TABLET PO ONE (11:23)
[2017-01-23] MEDS: BACITRACIN OINT 0.9 GM PACK TOP SCH ×2 (19:14→20:54)
[2017-01-23] MEDS: METOPROLOL TARTRATE 50 MG TABLET PO SCH (20:53)
[2017-01-23] MEDS: ATORVASTATIN 10 MG TABLET PO SCH (20:53)
[2017-01-23] MEDS ORDERED: ATORVASTATIN 40 MG TABLET PO SCH (21:00)
[2017-01-23] MEDS ORDERED: ALBUTEROL 2.5 MG/3 ML NEB RESP TX PRN (21:02)
[2017-01-24 05:50] LABS: Basophils % 0.2 % (0.0-0.8); Eosinophils # 0.7 10*3/uL (0.0-0.87); Eosinophils % 5.7 % (0.00-10.9); Hematocrit 35.3 VOL% (42.0-52.0); Hemoglobin 12.2 GM/DL (14.0-18.0); Immature Granulocytes % 0.4 %; Immature Granulocytes Absolute 0.05 #; Lymphocytes # 3.2 10*3/uL (1.4-4.0); Lymphocytes % 24.7 % (21.2-54.2); Mean Corpuscular HGB Conc 34.6 GM/DL (32-36); Mean Corpuscular Hemoglobin 30 PG (27-34); Mean Corpuscular Volume 87.4 FL (87-102); Mean Platelet Volume 11.4 FL (9.6-12.0); Monocytes # 1.2 10*3/uL (0.11-0.8); Monocytes % 8.9 % (1.7-12.7); Neutrophils # 7.9 10*3/uL (1.4-7.4); Neutrophils % 60.1 % (38.7-73.9); Platelet Count 151 T/CUMM (130-400); Red Blood Count 4.04 MC/CUMM (3.8-5.5); Red Cell Distribution Width 12.9 % (9.3-17.3); White Blood Count 13.1 T/CUMM (4-12)
[2017-01-24 06:22] LABS: Calcium 8.2 MG/DL (8.5-10.1); Osmolality,Calculated 279.4 MOS/KG (273-304)
[2017-01-24] MEDS: ISOSORBIDE MONONITRATE 30 MG TABLET PO SCH (08:28)
[2017-01-24] MEDS: MAGNESIUM OXIDE 400 MG TABLET PO SCH (08:28)
[2017-01-24] MEDS: PANTOPRAZOLE 40 MG TABLET PO SCH (08:28)
[2017-01-24] MEDS: BACITRACIN OINT 0.9 GM PACK TOP SCH ×2 (08:28→21:13)
[2017-01-24] MEDS: LOSARTAN 50 MG TABLET PO SCH (08:28)
[2017-01-24] MEDS: ASPIRIN EC 81 MG TABLET PO SCH (08:28)
[2017-01-24] MEDS: METOPROLOL TARTRATE 50 MG TABLET PO SCH ×2 (08:29→21:14)
--- NOTE | 2017-01-24 10:54 | Electrophysiology Progress Not ---
Assessment and Plan (1) Third degree AV block Status: Resolved Assessment and plan: 86-year-old male, with symptomatic bradycardia, complete heart block, escape rhythm of 75 bpm, with IVCD. Hypertension, hyperlipidemia. Cardiomyopathy. 01/21/2017: DDD PM implant from L cephalic access -ICM, HTN. Cont metoprolol, ARB, ASA, statin -AF. CHADSVASC 4. He only had few brief asymptomatic episodes. Continue to monitor with the pacemaker. If he does have paroxysmal atrial fibrillation, with the recently initiated medical management, we will start anticoagulation. -Keep the occlusive dressing in place for 4 more days, keep the implant site dry. -FU with EP next Saturday Current Visit: Yes (2) Hypertension Status: Chronic Current Visit: Yes (3) Dyslipidemia Status: Chronic Current Visit: Yes (4) Chest pain Status: Resolved Current Visit: Yes Electrophysiology Subjective Interval history: He is feeling fine. No recurrence of chest pain. The blood pressure is still occasionally elevated. Exam - Constitutional Vitals: Period Temp Pulse Resp BP Sys/Barry Pulse Ox Last 24 Hr 98.4 F-99.1 F 60-70 10-31 97-172/59-87 93-96 General appearance: normal weight, no acute distress - Head Head exam: Present: normal inspection, normocephalic - Eye Eye exam: Absent: conjunctival injection Pupils: Absent: dilated - ENT ENT exam: Present: normal external ear exam - Neck Neck exam: Present: normal inspection - Respiratory Respiratory exam: Present: clear to auscultation bilaterally - Cardiovascular Cardiovascular exam: Present: regular rate and rhythm - Extremities Exam Extremities exam: Present: normal inspection, normal capillary refill. Absent: edema - Back Exam Back exam: Present: normal inspection - Neurological Exam Neurological exam: Present: alert, oriented X3 Results - Labs CBC & BMP: 01/24/17 04:15 01/24/17 04:15 - EKG EKG results: interpreted by ERMD Quality Measures - VTE Contraindication to Pharmacological VTE Prophylaxis: High Risk of Bleeding - Stroke Symptom Onset Unknown: No
[2017-01-24] MEDS: ACETAMINOPHEN 325 MG TABLET PO PRN (14:50)
--- NOTE | 2017-01-24 14:55 | Cardiology Progress Note ---
<Terrie Bowden E - Last Filed: 01/24/17 14:56> Assessment and Plan (1) Hypertension Status: Chronic Assessment and plan: See plan of care listed below Current Visit: Yes (2) Dyslipidemia Status: Chronic Assessment and plan: See plan of care listed below Current Visit: Yes (3) Risk for falls Status: Chronic Assessment and plan: See plan of care listed below Current Visit: Yes (4) Chest pain Status: Resolved Assessment and plan: See plan of care listed below Current Visit: Yes (5) Third degree AV block Status: Resolved Assessment and plan: See plan of care listed below Current Visit: Yes (6) Pacemaker Status: Resolved Assessment and plan: See plan of care listed below Current Visit: Yes (7) CAD (coronary artery disease) Status: Chronic Assessment and plan: See plan of care listed below Current Visit: Yes (8) Atrial fibrillation Status: Acute Assessment and plan: see plan of care listed below Current Visit: Yes Cardiology - PN: Subj Interval history: Interval history: [facility] SUMMARY: Mr. Peterson, 86WM, followed by cardiology at the [facility] in [place], [place], for prior history of syncope, history of "hole in heart"previously repaired 1968 at [facility]. History of hypertension, dyslipidemia, sedentary lifestyle. Patient presented to the emergency department at [facility] January 21, 2017 with complaints of chest pain and dizziness. He was found to be in third- degree heart block. He was taken to the cardiac catheterization lab by Dr. Blake the same day and underwent implantation of Medtronic dual chamber pacemaker. He tolerated the procedure well. Troponins were noted to be mildly elevated and he thus underwent elective cardiac catheterization January 22, 2017, performed by Dr. Gambino. (See report listed below). JANUARY 23, 2017: Overnight, patient has done well without chest pain, heaviness or tightness. He states that his breathing is nonlabored and he appears to be very comfortable. At this point, Dr. Thorne is considering medical management versus percutaneous intervention to the right coronary artery versus CABG. This morning, Mr. Petersno hopes that he can be treated medically he tells me. Right groin is soft, free of hematoma or bruit. Labs are stable including hemoglobin and hematocrit, creatinine. LDL 54. JANUARY 24, 2017: Daily, seems to be improving. Still weak. Physical therapy worked with him and his gait remains unstable. We will transfer to telemetry and continue strength training with anticipation of discharge home, with home health, tomorrow. Blood pressure stable, as are labs. Dr. Blake has seen patient and, at this time, since patient has had no recurrent atrial fibrillation, will hold off on formal anti-coagulation. However, if he continues to have PAF, recommends starting anti-coagulant or NOAC. CHADVASC 4. This will be evaluated with PPM interrogation. Patient will see Dr. Blake in one week (Saturday) for PPM interrogation. We will have patient removed occlusive dressing to left chest wall Saturday, January 28, 2017. Medical management of patient's CAD ensues. ASSESSMENT/PLAN: 1. COMPLETE HEART BLOCK - status post pacemaker implantation. No obvious hematoma. Dressing remains intact. 2. CAD - see plan of care listed above. Continue aspirin, beta blockade, MARCINAO inhibitor. Also taking a nitrate. We will add a low dose lipid-lowering agent. 3. HYPERTENSION - systolic blood pressure averaging 160s-170s. Will increase beta blockade today 4. DYSLIPIDEMIA - LDL 54. Start low-dose lipid-lowering agent given the severity of his CAD. 5. FALLS RISK - implement FALL PREVENTION protocol 6. DEBILITATED - continue with PT and plan for discharge with tomorrow 7. PAF - see discussion listed above. Exam (Progress Note) - Constitutional Vitals: Period Temp Pulse Resp BP Sys/Barry Pulse Ox Last 24 Hr 98.4 F-99.1 F 60-70 10-31 97-172/51-87 93-96 Exam: General: [Appears well with no apparent distress.] [Pleasant and cooperative. ] [Appears comfortable.] HEENT: [PERRL, normocephalic, atraumatic. Mucous membranes moist. No jaundice noted. Conjunctiva moist and clear, sclerae anicteric] Neck: No JVD/HJR, no thyromegaly or lymphadenopathy noted. No carotid bruit appreciated Cardiac: [Regular rate and rhythm.] [No murmur rub or gallop.] Chest: Several areas of excoriation. Symmetrical chest wall movements noted. Left upper chest dressing dry and intact, minimal edema. Lungs: [Clear to auscultation without accessory muscle use to assist the respiratory pattern.] Not requiring oxygen. Abdomen: Soft, bowel sounds normoactive. Nontender and nondistended. No abdominal bruit or thrill noted. No masses noted. Musculoskeletal: No fluid collection. Decreased range of motion is noted. Extremities: Left arm in sling. Right groin soft, free of hematoma. No clubbing, cyanosis noted. [ No edema noted.] Upper extremity pulses 2+. Lower extremity pulses 2+. Capillary refill less than 3 seconds. Skin: No unusual lesions or rashes. No skin breakdown appreciated. Neuro: Awake, alert and oriented 3. Moves all extremities well without hemiparesis or paralysis. No essential tremor is appreciated. Result/EKG - Labs CBC & BMP: 01/24/17 04:15 01/24/17 04:15 Lab Results: I have reviewed the past 24 hour labs Labs: Laboratory Results - last 24 hr 01/24/17 01/24/17 04:15 04:15 WBC 13.1 H RBC 4.04 Hgb 12.2 L Hct 35.3 L MCV 87.4 MCH 30 MCHC 34.6 RDW 12.9 Plt Count 151 MPV 11.4 Neut % (Auto) 60.1 Lymph % (Auto) 24.7 [place] % (Auto) 8.9 Eos % (Auto) 5.7 Baso % (Auto) 0.2 Neut # (Auto) 7.9 H Lymph # (Auto) 3.2 [place] # (Auto) 1.2 H Eos # (Auto) 0.7 Baso # (Auto) 0.0 Immature Gran % 0.4 Nucleated RBC % 0.0 Immature Gran # 0.05 Nucleated RBCs # 0.00 Sodium 140 Potassium 4.0 Chloride 107 Carbon Dioxide 24 Anion Gap 13.0 BUN 15 Creatinine 0.80 GFR Calculation 87 BUN/Creatinine Ratio 18.00 Glucose 104 Calculated Osmolality 279.4 Calcium 8.2 L Magnesium 2.0 - EKG EKG results: interpreted by me EKG shows: sinus rhythm Quality Measures - VTE Contraindication to Pharmacological VTE Prophylaxis: High Risk of Bleeding - Stroke Symptom Onset Unknown: No <Coby Thorne - Last Filed: 01/24/17 16:15> Cardiology - PN: Subj Interval history: I have personally interviewed and evaluated the patient, reviewed the chart and discussed medical decision-making with Practitioner Kal. I have read this note and agree with her documentation here in. Physical therapy evaluated the patient and it does not believe he is stable for discharge home today, we will reassess tomorrow. Exam (Progress Note) - Constitutional Vitals: Period Temp Pulse Resp BP Sys/Barry Pulse Ox Last 24 Hr 98.4 F-99.1 F 60-70 10-31 97-172/43-87 92-96 Result/EKG - Labs CBC & BMP: 01/24/17 04:15 01/24/17 04:15 Labs: Laboratory Results - last 24 hr 01/24/17 01/24/17 04:15 04:15 WBC 13.1 H RBC 4.04 Hgb 12.2 L Hct 35.3 L MCV 87.4 MCH 30 MCHC 34.6 RDW 12.9 Plt Count 151 MPV 11.4 Neut % (Auto) 60.1 Lymph % (Auto) 24.7 [place] % (Auto) 8.9 Eos % (Auto) 5.7 Baso % (Auto) 0.2 Neut # (Auto) 7.9 H Lymph # (Auto) 3.2 [place] # (Auto) 1.2 H Eos # (Auto) 0.7 Baso # (Auto) 0.0 Immature Gran % 0.4 Nucleated RBC % 0.0 Immature Gran # 0.05 Nucleated RBCs # 0.00 Sodium 140 Potassium 4.0 Chloride 107 Carbon Dioxide 24 Anion Gap 13.0 BUN 15 Creatinine 0.80 GFR Calculation 87 BUN/Creatinine Ratio 18.00 Glucose 104 Calculated Osmolality 279.4 Calcium 8.2 L Magnesium 2.0
[2017-01-24] MEDS: ATORVASTATIN 10 MG TABLET PO SCH (21:14)
[2017-01-25 06:37] LABS: Basophils % 0.2 % (0.0-0.8); Eosinophils % 7.8 % (0.00-10.9); Hematocrit 35.7 VOL% (42.0-52.0); Hemoglobin 12.1 GM/DL (14.0-18.0); Immature Granulocytes % 0.2 %; Immature Granulocytes Absolute 0.03 #; Lymphocytes # 2.4 10*3/uL (1.4-4.0); Lymphocytes % 18.4 % (21.2-54.2); Mean Corpuscular HGB Conc 33.9 GM/DL (32-36); Mean Corpuscular Hemoglobin 31 PG (27-34); Mean Corpuscular Volume 89.9 FL (87-102); Monocytes # 1.2 10*3/uL (0.11-0.8); Neutrophils # 8.2 10*3/uL (1.4-7.4); Neutrophils % 64.4 % (38.7-73.9); Platelet Count 129 T/CUMM (130-400); Red Blood Count 3.97 MC/CUMM (3.8-5.5); Red Cell Distribution Width 12.9 % (9.3-17.3); White Blood Count 12.8 T/CUMM (4-12)
[2017-01-25 07:05] LABS: Calcium 8.2 MG/DL (8.5-10.1); Osmolality,Calculated 281.4 MOS/KG (273-304)
--- NOTE | 2017-01-25 08:10 | Electrophysiology Progress Not ---
Assessment and Plan (1) Third degree AV block Status: Resolved Assessment and plan: 86-year-old male, with symptomatic bradycardia, complete heart block, escape rhythm of 75 bpm, with IVCD. Hypertension, hyperlipidemia. Cardiomyopathy. 01/21/2017: DDD PM implant from L cephalic access -ICM, HTN. Cont metoprolol, ARB, ASA, statin -AF. CHADSVASC 4. He only had few brief asymptomatic episodes. Continue to monitor with the pacemaker. If he does have paroxysmal atrial fibrillation, we will start anticoagulation. -Keep the occlusive dressing in place for 3 more days, keep the implant site dry. -He is going to swing bed. Follow-up with EP, after discharged. Current Visit: Yes (2) Hypertension Status: Chronic Current Visit: Yes (3) Dyslipidemia Status: Chronic Current Visit: Yes (4) Chest pain Status: Resolved Current Visit: Yes Electrophysiology Subjective Interval history: He is feeling fine. No recurrence of atrial fibrillation on telemetry. Exam - Constitutional Vitals: Period Temp Pulse Resp BP Sys/Barry Pulse Ox Last 24 Hr 98.2 F-99.4 F 60-67 14-20 101-154/43-70 92-96 General appearance: normal weight, no acute distress - Head Head exam: Present: normal inspection, normocephalic - Eye Eye exam: Absent: conjunctival injection Pupils: Absent: dilated - ENT ENT exam: Present: normal external ear exam - Neck Neck exam: Present: normal inspection - Respiratory Respiratory exam: Present: clear to auscultation bilaterally - Cardiovascular Cardiovascular exam: Present: regular rate and rhythm - GI/Abdominal GI/Abdominal exam: Present: normal bowel sounds - Extremities Exam Extremities exam: Present: normal inspection, normal capillary refill. Absent: edema - Back Exam Back exam: Present: normal inspection - Neurological Exam Neurological exam: Present: alert, oriented X3 - Psychiatric Psychiatric exam: Present: normal affect, normal mood - Skin Skin exam: Present: normal color, warm. Absent: cyanosis Results - Labs CBC & BMP: 01/25/17 06:20 01/25/17 06:20 Lab Results: I have reviewed the past 24 hour labs Quality Measures - VTE Contraindication to Pharmacological VTE Prophylaxis: High Risk of Bleeding - Stroke Symptom Onset Unknown: No
[2017-01-25] MEDS: LOSARTAN 50 MG TABLET PO SCH (09:09)
[2017-01-25] MEDS: ASPIRIN EC 81 MG TABLET PO SCH (09:09)
[2017-01-25] MEDS: PANTOPRAZOLE 40 MG TABLET PO SCH (09:10)
[2017-01-25] MEDS: BACITRACIN OINT 0.9 GM PACK TOP SCH ×2 (09:10→20:55)
[2017-01-25] MEDS: MAGNESIUM OXIDE 400 MG TABLET PO SCH (09:10)
[2017-01-25] MEDS: ISOSORBIDE MONONITRATE 30 MG TABLET PO SCH (09:10)
[2017-01-25] MEDS: METOPROLOL TARTRATE 50 MG TABLET PO SCH ×2 (09:10→20:56)
--- NOTE | 2017-01-25 11:58 | Event Note ---
Patient is currently being evaluated for possible swing bed transfer today. Overnight, he has done well. He is debilitated and would certainly benefit from further workup.
--- NOTE | 2017-01-25 15:15 | Cardiology Progress Note ---
<Terrie Bowden E - Last Filed: 01/25/17 15:13> Assessment and Plan - Time spent with patient Time spent with patient: Greater than 30 minutes (1) Hypertension Status: Chronic Assessment and plan: See plan of care listed below Current Visit: Yes (2) Dyslipidemia Status: Chronic Assessment and plan: See plan of care listed below Current Visit: Yes (3) Risk for falls Status: Chronic Assessment and plan: See plan of care listed below Current Visit: Yes (4) Chest pain Status: Resolved Assessment and plan: See plan of care listed below Current Visit: Yes (5) Third degree AV block Status: Resolved Assessment and plan: See plan of care listed below Current Visit: Yes (6) Pacemaker Status: Resolved Assessment and plan: See plan of care listed below Current Visit: Yes (7) CAD (coronary artery disease) Status: Chronic Assessment and plan: See plan of care listed below Current Visit: Yes (8) Atrial fibrillation Status: Acute Assessment and plan: see plan of care listed below Current Visit: Yes Cardiology - PN: Subj Interval history[facility] SUMMARY: Mr. Peterson, 86WM, followed by cardiology at the [facility] in [place], [place], for prior history of syncope, history of "hole in heart"previously repaired 1968 at [facility]. History of hypertension, dyslipidemia, sedentary lifestyle. Patient presented to the emergency department at [facility] January 21, 2017 with complaints of chest pain and dizziness. He was found to be in third- degree heart block. He was taken to the cardiac catheterization lab by Dr. Blake the same day and underwent implantation of Medtronic dual chamber pacemaker. He tolerated the procedure well. Troponins were noted to be mildly elevated and he thus underwent elective cardiac catheterization January 22, 2017, performed by Dr. Gambino. (See report listed below). JANUARY 23, 2017: Overnight, patient has done well without chest pain, heaviness or tightness. He states that his breathing is nonlabored and he appears to be very comfortable. At this point, Dr. Thorne is considering medical management versus percutaneous intervention to the right coronary artery versus CABG. This morning, Mr. Peterson hopes that he can be treated medically he tells me. Right groin is soft, free of hematoma or bruit. Labs are stable including hemoglobin and hematocrit, creatinine. LDL 54. JANUARY 24, 2017: Daily, seems to be improving. Still weak. Physical therapy worked with him and his gait remains unstable. We will transfer to telemetry and continue strength training with anticipation of discharge home, with home health, tomorrow. Blood pressure stable, as are labs. Dr. Blake has seen patient and, at this time, since patient has had no recurrent atrial fibrillation, will hold off on formal anti-coagulation. However, if he continues to have PAF, recommends starting anti-coagulant or NOAC. CHADVASC 4. This will be evaluated with PPM interrogation. Patient will see Dr. Blake in one week (Saturday) for PPM interrogation. We will have patient removed occlusive dressing to left chest wall Saturday, January 28, 2017. Medical management of patient's CAD ensues. JANUARY 25, 2017: Mr. Peterson was hopeful for discharge today however, he needs additional strength training in the [facility] center has not yet approved his transfer to swing bed. I will verify that physical therapy will be working aggressively with him over the weekend. If he is not approved for transfer on Saturday, and his strength improves, he may be stable for discharge home on Saturday. Denies chest pain, heaviness or tightness. Labs are stable and his vital signs are stable as well. Per Dr. Blake, he has had 2 episodes of paroxysmal atrial fibrillation since pacemaker implantation. He will continue to reevaluate this outpatient. Continues to have he may be a candidate for anticoagulation. ASSESSMENT/PLAN: 1. COMPLETE HEART BLOCK - status post pacemaker implantation. No obvious hematoma. Dressing remains intact and may be removed Saturday, January 28, 2017.. 2. CAD - see plan of care listed above. Continue aspirin, beta blockade, MARCIANO inhibitor. Also taking a nitrate. 3. HYPERTENSION - systolic blood pressure averaging 160s-170s. Will increase beta blockade today 4. DYSLIPIDEMIA - LDL 54. On low-dose lipid-lowering agent. 5. FALLS RISK - implement FALL PREVENTION protocol 6. DEBILITATED - continue with PT and plan for discharge soon 7. PAF - see discussion listed above. Exam (Progress Note) - Constitutional Vitals: Period Temp Pulse Resp BP Sys/Barry Pulse Ox Last 24 Hr 98.2 F-99.4 F 60-67 14-20 101-165/43-78 92-98 Exam: General: [Appears well with no apparent distress.] [Pleasant and cooperative. ] [Appears comfortable.] HEENT: [PERRL, normocephalic, atraumatic. Mucous membranes moist. No jaundice noted. Conjunctiva moist and clear, sclerae anicteric] Neck: No JVD/HJR, no thyromegaly or lymphadenopathy noted. No carotid bruit appreciated Cardiac: [Regular rate and rhythm.] [No murmur rub or gallop.] Chest: Several areas of excoriation. Symmetrical chest wall movements noted. Left upper chest dressing dry and intact, minimal edema. Lungs: [Clear to auscultation without accessory muscle use to assist the respiratory pattern.] Not requiring oxygen. Abdomen: Soft, bowel sounds normoactive. Nontender and nondistended. No abdominal bruit or thrill noted. No masses noted. Musculoskeletal: No fluid collection. Decreased range of motion is noted. Extremities: Left arm in sling. No obvious hematoma. No clubbing, cyanosis noted. [ No edema noted.] Upper extremity pulses 2+. Lower extremity pulses 2+ . Capillary refill less than 3 seconds. Skin: No unusual lesions or rashes. No skin breakdown appreciated. Neuro: Awake, alert and oriented 3. Moves all extremities well without hemiparesis or paralysis. No essential tremor is appreciated. Result/EKG - Labs CBC & BMP: 01/25/17 06:20 01/25/17 06:20 Lab Results: I have reviewed the past 24 hour labs Labs: Laboratory Results - last 24 hr 01/25/17 01/25/17 06:20 06:20 WBC 12.8 H RBC 3.97 Hgb 12.1 L Hct 35.7 L MCV 89.9 MCH 31 MCHC 33.9 RDW 12.9 Plt Count 129 L MPV 11.0 Neut % (Auto) 64.4 Lymph % (Auto) 18.4 L [place] % (Auto) 9.0 Eos % (Auto) 7.8 Baso % (Auto) 0.2 Neut # (Auto) 8.2 H Lymph # (Auto) 2.4 [place] # (Auto) 1.2 H Eos # (Auto) 1.0 H Baso # (Auto) 0.0 Immature Gran % 0.2 Nucleated RBC % 0.0 Immature Gran # 0.03 Nucleated RBCs # 0.00 Sodium 140 Potassium 4.0 Chloride 106 Carbon Dioxide 26 Anion Gap 12.0 BUN 17 Creatinine 0.80 GFR Calculation 87 BUN/Creatinine Ratio 21.00 H Glucose 109 H Calculated Osmolality 281.4 Calcium 8.2 L Magnesium 2.0 - EKG EKG results: interpreted by me EKG shows: sinus rhythm Quality Measures - VTE Contraindication to Pharmacological VTE Prophylaxis: High Risk of Bleeding - Stroke Symptom Onset Unknown: No <Coby Thorne - Last Filed: 01/25/17 17:40> Cardiology - PN: Subj Interval history: I have personally interviewed and evaluated the patient, reviewed the chart and discussed medical decision-making with Practitioner Kal. I have read this note and agree with her documentation here in. Exam (Progress Note) - Constitutional Vitals: Period Temp Pulse Resp BP Sys/Barry Pulse Ox Last 24 Hr 98.2 F-99.4 F 60-66 18-20 121-165/56-78 95-98 Result/EKG - Labs CBC & BMP: 01/25/17 06:20 01/25/17 06:20 Labs: Laboratory Results - last 24 hr 01/25/17 01/25/17 06:20 06:20 WBC 12.8 H RBC 3.97 Hgb 12.1 L Hct 35.7 L MCV 89.9 MCH 31 MCHC 33.9 RDW 12.9 Plt Count 129 L MPV 11.0 Neut % (Auto) 64.4 Lymph % (Auto) 18.4 L [place] % (Auto) 9.0 Eos % (Auto) 7.8 Baso % (Auto) 0.2 Neut # (Auto) 8.2 H Lymph # (Auto) 2.4 [place] # (Auto) 1.2 H Eos # (Auto) 1.0 H Baso # (Auto) 0.0 Immature Gran % 0.2 Nucleated RBC % 0.0 Immature Gran # 0.03 Nucleated RBCs # 0.00 Sodium 140 Potassium 4.0 Chloride 106 Carbon Dioxide 26 Anion Gap 12.0 BUN 17 Creatinine 0.80 GFR Calculation 87 BUN/Creatinine Ratio 21.00 H Glucose 109 H Calculated Osmolality 281.4 Calcium 8.2 L Magnesium 2.0
[2017-01-25] MEDS: ATORVASTATIN 10 MG TABLET PO SCH (20:56)
[2017-01-26 04:38] LABS: Basophils % 0.3 % (0.0-0.8); Eosinophils # 1.1 10*3/uL (0.0-0.87); Eosinophils % 8.6 % (0.00-10.9); Hematocrit 34.6 VOL% (42.0-52.0); Hemoglobin 11.6 GM/DL (14.0-18.0); Immature Granulocytes % 0.5 %; Immature Granulocytes Absolute 0.06 #; Lymphocytes # 2.8 10*3/uL (1.4-4.0); Lymphocytes % 22.4 % (21.2-54.2); Mean Corpuscular HGB Conc 33.5 GM/DL (32-36); Mean Corpuscular Hemoglobin 30 PG (27-34); Mean Corpuscular Volume 89.6 FL (87-102); Mean Platelet Volume 11.4 FL (9.6-12.0); Monocytes # 1.3 10*3/uL (0.11-0.8); Monocytes % 10.7 % (1.7-12.7); Neutrophils # 7.1 10*3/uL (1.4-7.4); Neutrophils % 57.5 % (38.7-73.9); Platelet Count 142 T/CUMM (130-400); Red Blood Count 3.86 MC/CUMM (3.8-5.5); White Blood Count 12.4 T/CUMM (4-12)
[2017-01-26 05:07] LABS: Calcium 7.8 MG/DL (8.5-10.1); Osmolality,Calculated 281.5 MOS/KG (273-304); Potassium 3.7 MMOL/L (3.5-5.1)
[2017-01-26] MEDS: METOPROLOL TARTRATE 50 MG TABLET PO SCH ×2 (09:08→20:52)
[2017-01-26] MEDS: LOSARTAN 50 MG TABLET PO SCH (09:08)
[2017-01-26] MEDS: PANTOPRAZOLE 40 MG TABLET PO SCH (09:09)
[2017-01-26] MEDS: BACITRACIN OINT 0.9 GM PACK TOP SCH ×2 (09:09→20:52)
[2017-01-26] MEDS: ISOSORBIDE MONONITRATE 30 MG TABLET PO SCH (09:09)
[2017-01-26] MEDS: ASPIRIN EC 81 MG TABLET PO SCH (09:09)
[2017-01-26] MEDS: MAGNESIUM OXIDE 400 MG TABLET PO SCH (09:09)
--- NOTE | 2017-01-26 14:47 | Cardiology Progress Note ---
Assessment and Plan (1) Third degree AV block Status: Resolved Current Visit: Yes (2) Hypertension Status: Chronic Current Visit: Yes (3) Dyslipidemia Status: Chronic Current Visit: Yes (4) Risk for falls Status: Chronic Current Visit: Yes (5) Pacemaker Status: Resolved Current Visit: Yes (6) CAD (coronary artery disease) Status: Chronic Current Visit: Yes (7) Atrial fibrillation Status: Acute Current Visit: Yes Cardiology - PN: Subj Interval history: Evening was uneventful. No complaints. Denies chest pain, shortness of breath. He is awaiting placement at a skilled facility. ASSESSMENT/PLAN: 1. COMPLETE HEART BLOCK - status post pacemaker implantation. No obvious hematoma. Dressing remains intact and may be removed Saturday, January 28, 2017.. 2. CAD - Continue aspirin, beta blockade, MARCIANO inhibitor. Also taking a nitrate. I believe he has improved symptoms, and he only had stable angina at the time of presentation. His anatomy is not readily amenable to intervention, although some attempt could be made if clinically indicated. Currently he seems to be stable from the standpoint. 3. HYPERTENSION -generally controlled. 4. DYSLIPIDEMIA - LDL 54. On low-dose lipid-lowering agent. 5. FALLS RISK - implement FALL PREVENTION protocol 6. DEBILITATED - continue with PT and plan for discharge soon 7. PAF -he has been in sinus rhythm Exam (Progress Note) - Constitutional Vitals: Period Temp Pulse Resp BP Sys/Barry Pulse Ox Last 24 Hr 96.9 F-100.3 F 60-68 16-20 101-148/50-77 94-99 Exam: General appearance: normal weight, no acute distress - Head Head exam: Present: normal inspection, normocephalic, atraumatic. Absent: hematoma, laceration - Eye Eye exam: Present: EOMI. Absent: conjunctival injection, nystagmus, periorbital swelling, scleral icterus, laceration to eyelids Pupils: Present: PERRL. Absent: constricted, dilated, fixed, irregular, unequal - ENT ENT exam: Present: normal exam, normal external ear exam - Neck Neck exam: Present: normal inspection. Absent: lymphadenopathy, meningismus, tenderness, thyromegaly - Respiratory Respiratory exam: Present: clear to auscultation bilaterally. Absent: accessory muscle use, chest wall tenderness - Cardiovascular Cardiovascular exam: Present: regular rate and rhythm. Absent: carotid bruit, gallop, JVD, rubs - GI/Abdominal GI/Abdominal exam: Present: normal bowel sounds, soft. Absent: distended, firm , guarding, hernia, mass, tenderness, rebound. - Extremities Exam Extremities exam: Present: normal inspection, normal capillary refill. Absent: calf tenderness, edema - Back Exam Back exam: Present: normal inspection. Absent: muscle spasm, vertebral tenderness - Neurological Exam Neurological exam: Present: alert, oriented X3, grossly intact without resting or intention tremor - Psychiatric Psychiatric exam: Present: normal affect, normal mood - Skin Skin exam: Present: normal color, warm, dry, intact. Absent: cyanosis, diaphoretic, rash, urticaria The left arm is in a sling. Result/EKG - Labs CBC & BMP: 01/26/17 03:49 01/26/17 03:49 Lab Results: I have reviewed the past 24 hour labs Labs: Laboratory Results - last 24 hr 01/26/17 01/26/17 03:49 03:49 WBC 12.4 H RBC 3.86 Hgb 11.6 L Hct 34.6 L MCV 89.6 MCH 30 MCHC 33.5 RDW 13.0 Plt Count 142 MPV 11.4 Neut % (Auto) 57.5 Lymph % (Auto) 22.4 [place] % (Auto) 10.7 Eos % (Auto) 8.6 Baso % (Auto) 0.3 Neut # (Auto) 7.1 Lymph # (Auto) 2.8 [place] # (Auto) 1.3 H Eos # (Auto) 1.1 H Baso # (Auto) 0.0 Immature Gran % 0.5 Nucleated RBC % 0.0 Immature Gran # 0.06 Nucleated RBCs # 0.00 Sodium 139 Potassium 3.7 Chloride 104 Carbon Dioxide 26 Anion Gap 12.7 BUN 25 H Creatinine 0.90 GFR Calculation 83 BUN/Creatinine Ratio 27.00 H Glucose 114 H Calculated Osmolality 281.5 Calcium 7.8 L Magnesium 2.0 Quality Measures - VTE Contraindication to Pharmacological VTE Prophylaxis: High Risk of Bleeding - Stroke Symptom Onset Unknown: No
[2017-01-26] MEDS: ALUMINUM/MAGNES/SIMETH MAX STR 30 ML UDCUP PO PRN (20:51)
[2017-01-26] MEDS: ACETAMINOPHEN 325 MG TABLET PO PRN (20:51)
[2017-01-26] MEDS: ATORVASTATIN 10 MG TABLET PO SCH (20:52)
[2017-01-27] MEDS: guaiFENesin/DM ER 600-30 MG TABLET PO PRN ×2 (04:33→15:58)
[2017-01-27 05:15] LABS: Basophils % 0.2 % (0.0-0.8); Eosinophils # 1.5 10*3/uL (0.0-0.87); Eosinophils % 14.5 % (0.00-10.9); Hemoglobin 11.1 GM/DL (14.0-18.0); Immature Granulocytes % 0.5 %; Immature Granulocytes Absolute 0.05 #; Lymphocytes # 1.9 10*3/uL (1.4-4.0); Lymphocytes % 17.6 % (21.2-54.2); Mean Corpuscular HGB Conc 33.6 GM/DL (32-36); Mean Corpuscular Hemoglobin 30 PG (27-34); Mean Corpuscular Volume 88.7 FL (87-102); Mean Platelet Volume 10.7 FL (9.6-12.0); Monocytes # 1.1 10*3/uL (0.11-0.8); Monocytes % 9.9 % (1.7-12.7); Neutrophils # 6.1 10*3/uL (1.4-7.4); Neutrophils % 57.3 % (38.7-73.9); Platelet Count 149 T/CUMM (130-400); Red Blood Count 3.72 MC/CUMM (3.8-5.5); White Blood Count 10.6 T/CUMM (4-12)
[2017-01-27 05:42] LABS: Calcium 7.8 MG/DL (8.5-10.1); Osmolality,Calculated 283.4 MOS/KG (273-304); Potassium 3.9 MMOL/L (3.5-5.1)
[2017-01-27 06:06] LABS: Eosinophils 16 % (0-10); Hypochromasia 1+; Lymphocytes 17 % (20-55); Ovalocytes Slight; Platelet Estimate Normal; Segmented Neutrophils 58 % (50-85); Total Cells Counted 100
[2017-01-27] MEDS: BACITRACIN OINT 0.9 GM PACK TOP SCH ×2 (09:19→20:50)
[2017-01-27] MEDS: MAGNESIUM OXIDE 400 MG TABLET PO SCH (09:20)
[2017-01-27] MEDS: METOPROLOL TARTRATE 50 MG TABLET PO SCH ×2 (09:20→20:50)
[2017-01-27] MEDS: ASPIRIN EC 81 MG TABLET PO SCH (09:20)
[2017-01-27] MEDS: PANTOPRAZOLE 40 MG TABLET PO SCH (09:20)
[2017-01-27] MEDS: LOSARTAN 50 MG TABLET PO SCH (09:20)
[2017-01-27] MEDS: ISOSORBIDE MONONITRATE 30 MG TABLET PO SCH (09:21)
--- NOTE | 2017-01-27 10:23 | Electrophysiology Progress Not ---
Assessment and Plan (1) Third degree AV block Status: Resolved Assessment and plan: 86-year-old male, with symptomatic bradycardia, complete heart block, escape rhythm of 75 bpm, with IVCD. Hypertension, hyperlipidemia. Cardiomyopathy. 01/21/2017: DDD PM implant from L cephalic access -ICM, HTN. Cont metoprolol, ARB, ASA, statin -Removed pacemaker dressing. He may start showering. He will need to keep wearing the sling for 3 more weeks, only at night. During daytime, he may move his left arm, up to the shoulder level, there will be no limitations 4 weeks after the PM implant. -AF. CHADSVASC 4. He had few short bursts of A. fib, shortly after pacemaker implant. Telemetry interpretation is limited by artifacts. Ask Cruz to interrogate his pacemaker in a.m. If he has paroxysmal A. fib, I recommend to start anticoagulation. -FU with EP in 1 month Current Visit: Yes (2) Hypertension Status: Chronic Current Visit: Yes (3) Dyslipidemia Status: Chronic Current Visit: Yes (4) Chest pain Status: Resolved Current Visit: Yes Electrophysiology Subjective Interval history: He is feeling fine, now more ambulatory. Due to insurance issues, he will not be a candidate for swing bed and is planning to go home tomorrow. Telemetry shows mostly paced rhythm, several episodes, with many artifacts, cannot rule out paroxysmal atrial fibrillation. Removed pacemaker dressing. The implant site is healing well. Exam - Constitutional Vitals: Period Temp Pulse Resp BP Sys/Barry Pulse Ox Last 24 Hr 96.9 F-100.6 F 60-76 18-20 91-140/52-63 94-99 General appearance: normal weight, no acute distress - Head Head exam: Present: normal inspection, normocephalic - Eye Eye exam: Absent: conjunctival injection Pupils: Absent: dilated - ENT ENT exam: Present: normal external ear exam - Neck Neck exam: Present: normal inspection - Respiratory Respiratory exam: Present: clear to auscultation bilaterally - Cardiovascular Cardiovascular exam: Present: regular rate and rhythm - GI/Abdominal GI/Abdominal exam: Present: normal bowel sounds. Absent: distended - Extremities Exam Extremities exam: Present: normal inspection, normal capillary refill. Absent: edema - Back Exam Back exam: Present: normal inspection - Neurological Exam Neurological exam: Present: alert, oriented X3 - Psychiatric Psychiatric exam: Present: normal affect, normal mood - Skin Skin exam: Present: normal color, warm. Absent: cyanosis Results - Labs CBC & BMP: 01/27/17 04:54 01/27/17 04:54 Lab Results: I have reviewed the past 24 hour labs Quality Measures - VTE Contraindication to Pharmacological VTE Prophylaxis: High Risk of Bleeding - Stroke Symptom Onset Unknown: No Specialty Discharge - Follow Up or Referrals - Speciality Discharge Instructions Cardiology Instructions: FU with EP in 1 month
--- NOTE | 2017-01-27 17:14 | Cardiology Progress Note ---
Assessment and Plan (1) Third degree AV block Status: Resolved Current Visit: Yes (2) Hypertension Status: Chronic Current Visit: Yes (3) Dyslipidemia Status: Chronic Current Visit: Yes (4) Risk for falls Status: Chronic Current Visit: Yes (5) Pacemaker Status: Resolved Current Visit: Yes (6) CAD (coronary artery disease) Status: Chronic Current Visit: Yes (7) Atrial fibrillation Status: Acute Current Visit: Yes Cardiology - PN: Subj Interval history: The [facility] the [facility] He was admitted with third- degree AV block. He also had some anginal symptoms. He underwent permanent pacemaker implantation by Dr. Blake and subsequently underwent cardiac catheterization. There was some moderate to severe disease that we are going to attempt to medically manage. He remains asymptomatic and is recovering well. He has been observed in the hospital because he is elderly, as is his , and he was not stable to ambulate or care for himself postoperatively. We were looking for placement but that does not look feasible. At this point he will be able to be released from his sling during the daytime and we are optimistic we will be able to discharge him to home tomorrow. Exam (Progress Note) - Constitutional Vitals: Period Temp Pulse Resp BP Sys/Barry Pulse Ox Last 24 Hr 97.2 F-100.6 F 60-76 18-20 91-140/52-63 94-98 Exam: General appearance: normal weight, no acute distress - Head Head exam: Present: normal inspection, normocephalic, atraumatic. Absent: hematoma, laceration - Eye Eye exam: Present: EOMI. Absent: conjunctival injection, nystagmus, periorbital swelling, scleral icterus, laceration to eyelids Pupils: Present: PERRL. Absent: constricted, dilated, fixed, irregular, unequal - ENT ENT exam: Present: normal exam, normal external ear exam - Neck Neck exam: Present: normal inspection. Absent: lymphadenopathy, meningismus, tenderness, thyromegaly - Respiratory Respiratory exam: Present: clear to auscultation bilaterally. Absent: accessory muscle use, chest wall tenderness - Cardiovascular Cardiovascular exam: Present: regular rate and rhythm. Absent: carotid bruit, gallop, JVD, rubs - GI/Abdominal GI/Abdominal exam: Present: normal bowel sounds, soft. Absent: distended, firm , guarding, hernia, mass, tenderness, rebound. - Extremities Exam Extremities exam: Present: normal inspection, normal capillary refill. Absent: calf tenderness, edema - Back Exam Back exam: Present: normal inspection. Absent: muscle spasm, vertebral tenderness - Neurological Exam Neurological exam: Present: alert, oriented X3, grossly intact without resting or intention tremor - Psychiatric Psychiatric exam: Present: normal affect, normal mood - Skin Skin exam: Present: normal color, warm, dry, intact. Absent: cyanosis, diaphoretic, rash, urticaria The left arm is in a sling. Result/EKG - Labs CBC & BMP: 01/27/17 04:54 01/27/17 04:54 Lab Results: I have reviewed the past 24 hour labs Labs: Laboratory Results - last 24 hr 01/27/17 01/27/17 04:54 04:54 WBC 10.6 RBC 3.72 L Hgb 11.1 L Hct 33.0 L MCV 88.7 MCH 30 MCHC 33.6 RDW 13.0 Plt Count 149 MPV 10.7 Neut % (Auto) 57.3 Lymph % (Auto) 17.6 L [place] % (Auto) 9.9 Eos % (Auto) 14.5 H Baso % (Auto) 0.2 Neut # (Auto) 6.1 Lymph # (Auto) 1.9 [place] # (Auto) 1.1 H Eos # (Auto) 1.5 H Baso # (Auto) 0.0 Total Counted 100 Immature Gran % 0.5 Nucleated RBC % 0.0 Immature Gran # 0.05 Segmented Neutrophils 58 Lymphocytes 17 L Monocytes 9 Eosinophils 16 H Nucleated RBCs # 0.00 Platelet Estimate Normal Hypochromasia 1+ Ovalocytes Slight Morphology Comment Sodium 140 Potassium 3.9 Chloride 105 Carbon Dioxide 27 Anion Gap 11.9 BUN 23 H Creatinine 0.80 GFR Calculation 161 BUN/Creatinine Ratio 28.00 H Glucose 124 H Calculated Osmolality 283.4 Calcium 7.8 L Magnesium 2.0 Quality Measures - VTE Contraindication to Pharmacological VTE Prophylaxis: High Risk of Bleeding - Stroke Symptom Onset Unknown: No
[2017-01-27] MEDS: ATORVASTATIN 10 MG TABLET PO SCH (20:50)
[2017-01-28] MEDS: ACETAMINOPHEN 325 MG TABLET PO PRN (02:12)
[2017-01-28 04:56] LABS: Basophils % 0.2 % (0.0-0.8); Eosinophils # 1.5 10*3/uL (0.0-0.87); Eosinophils % 17.6 % (0.00-10.9); Hematocrit 31.5 VOL% (42.0-52.0); Hemoglobin 10.5 GM/DL (14.0-18.0); Immature Granulocytes % 0.5 %; Immature Granulocytes Absolute 0.04 #; Lymphocytes # 1.8 10*3/uL (1.4-4.0); Lymphocytes % 21.4 % (21.2-54.2); Mean Corpuscular HGB Conc 33.3 GM/DL (32-36); Mean Corpuscular Hemoglobin 30 PG (27-34); Mean Corpuscular Volume 89.5 FL (87-102); Mean Platelet Volume 11.1 FL (9.6-12.0); Monocytes # 0.9 10*3/uL (0.11-0.8); Monocytes % 11.1 % (1.7-12.7); Neutrophils # 4.1 10*3/uL (1.4-7.4); Neutrophils % 49.2 % (38.7-73.9); Platelet Count 152 T/CUMM (130-400); Red Blood Count 3.52 MC/CUMM (3.8-5.5); Red Cell Distribution Width 12.9 % (9.3-17.3); White Blood Count 8.3 T/CUMM (4-12)
[2017-01-28 05:23] LABS: Calcium 7.5 MG/DL (8.5-10.1); Osmolality,Calculated 282.4 MOS/KG (273-304); Potassium 4.3 MMOL/L (3.5-5.1)
[2017-01-28 05:56] LABS: Eosinophils 14 % (0-10); Lymphocytes 20 % (20-55); Segmented Neutrophils 58 % (50-85); Total Cells Counted 100
[2017-01-28 05:57] LABS: Hypochromasia 1+; Microcytosis 1+; Platelet Estimate Adequate
--- NOTE | 2017-01-28 07:38 | Electrophysiology Progress Not ---
Assessment and Plan (1) Third degree AV block Status: Resolved Assessment and plan: 86-year-old male, with symptomatic bradycardia, complete heart block, escape rhythm of 75 bpm, with IVCD. Hypertension, hyperlipidemia. Cardiomyopathy. 01/21/2017: DDD PM implant from L cephalic access -ICM, HTN. Cont metoprolol, ARB, ASA, statin -Post pacemaker implant activity limitations and implant site care were discussed. Continue to wear the sling, at night only, for 3 more weeks. May lift left arm up to shoulder level, for the next 3 weeks, then there will be no limitations. May start cleaning the skin above the pacemaker incision. -AF. CHADSVASC 4. He had few short bursts of A. fib, shortly after pacemaker implant. Telemetry interpretation is limited by artifacts. Ask Cruz to interrogate his pacemaker. If he has paroxysmal A. fib, I recommend to start anticoagulation. -FU with EP in 1 month Current Visit: Yes (2) Hypertension Status: Chronic Current Visit: Yes (3) Dyslipidemia Status: Chronic Current Visit: Yes (4) Chest pain Status: Resolved Current Visit: Yes Electrophysiology Subjective Interval history: He is feeling fine. In atrial paced rhythm. Pacemaker implant site is healing well. Exam - Constitutional Vitals: Period Temp Pulse Resp BP Sys/Barry Pulse Ox Last 24 Hr 97.2 F-99.6 F 60-66 18-20 98-140/52-70 95-98 General appearance: normal weight, no acute distress - Head Head exam: Present: normal inspection, normocephalic - Eye Eye exam: Absent: conjunctival injection Pupils: Absent: dilated - ENT ENT exam: Present: normal external ear exam - Neck Neck exam: Present: normal inspection - Respiratory Respiratory exam: Present: clear to auscultation bilaterally - Cardiovascular Cardiovascular exam: Present: regular rate and rhythm - GI/Abdominal GI/Abdominal exam: Present: normal bowel sounds. Absent: distended - Extremities Exam Extremities exam: Present: normal inspection, normal capillary refill. Absent: edema - Neurological Exam Neurological exam: Present: alert, oriented X3 - Psychiatric Psychiatric exam: Present: normal affect, normal mood - Skin Skin exam: Present: normal color, warm, other (No pacemaker hematoma). Absent: cyanosis Results - Labs CBC & BMP: 01/28/17 03:55 01/28/17 03:55 Lab Results: I have reviewed the past 24 hour labs Quality Measures - VTE Contraindication to Pharmacological VTE Prophylaxis: High Risk of Bleeding - Stroke Symptom Onset Unknown: No
[2017-01-28] MEDS: LOSARTAN 50 MG TABLET PO SCH (09:07)
[2017-01-28] MEDS: ASPIRIN EC 81 MG TABLET PO SCH (09:07)
[2017-01-28] MEDS: ISOSORBIDE MONONITRATE 30 MG TABLET PO SCH (09:08)
[2017-01-28] MEDS: METOPROLOL TARTRATE 50 MG TABLET PO SCH (09:08)
[2017-01-28] MEDS: guaiFENesin/DM ER 600-30 MG TABLET PO PRN (09:08)
[2017-01-28] MEDS: MAGNESIUM OXIDE 400 MG TABLET PO SCH (09:08)
[2017-01-28] MEDS: BACITRACIN OINT 0.9 GM PACK TOP SCH (09:08)
[2017-01-28] MEDS: PANTOPRAZOLE 40 MG TABLET PO SCH (09:08)
[2017-01-28 11:24] VITALS: BP 100/62
--- NOTE | 2017-01-28 11:39 | Discharge Summary ---
Hospital Course - Hospital Course Hospital Course: CARDIOLOGY: [facility], [place] PCP: [facility] [place] SUMMARY: Mr. Peterson, [id number], followed by cardiology at the [facility] in [place], [place], for prior history of syncope, history of "hole in heart"previously repaired 1968 at [facility]. History of hypertension, dyslipidemia, sedentary lifestyle. Patient presented to the emergency department at [facility] January 21, 2017 with complaints of chest pain and dizziness. He was found to be in third- degree heart block. He was taken to the cardiac catheterization lab by Dr. Blake the same day and underwent implantation of Medtronic dual chamber pacemaker. He tolerated the procedure well. Troponins were noted to be mildly elevated and he thus underwent elective cardiac catheterization January 22, 2017, performed by Dr. Gambino. 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 JANUARY 23, 2017: Overnight, patient has done well without chest pain, heaviness or tightness. He states that his breathing is nonlabored and he appears to be very comfortable. At this point, Dr. Thorne is considering medical management versus percutaneous intervention to the right coronary artery versus CABG. This morning, Mr. Peterson hopes that he can be treated medically he tells me. Right groin is soft, free of hematoma or bruit. Labs are stable including hemoglobin and hematocrit, creatinine. LDL 54. JANUARY 24, 2017: Daily, seems to be improving. Still weak. Physical therapy worked with him and his gait remains unstable. We will transfer to telemetry and continue strength training with anticipation of discharge home, with home health, tomorrow. Blood pressure stable, as are labs. Dr. Blake has seen patient and, at this time, since patient has had no recurrent atrial fibrillation, will hold off on formal anti-coagulation. However, if he continues to have PAF, recommends starting anti-coagulant or NOAC. CHADVASC 4. This will be evaluated with PPM interrogation. Patient will see Dr. Blake in one week (Saturday) for PPM interrogation. We will have patient removed occlusive dressing to left chest wall Saturday, January 28, 2017. Medical management of patient's CAD ensues. JANUARY 25, 2017: Mr. Peterson was hopeful for discharge today however, he needs additional strength training in the [facility] has not yet approved his transfer to swing bed. I will verify that physical therapy will be working aggressively with him over the weekend. If he is not approved for transfer on Saturday, and his strength improves, he may be stable for discharge home on Saturday. Denies chest pain, heaviness or tightness. Labs are stable and his vital signs are stable as well. Per Dr. Blake, he has had 2 episodes of paroxysmal atrial fibrillation since pacemaker implantation. He will continue to reevaluate this outpatient. Continues to have he may be a candidate for anticoagulation. JANUARY 28, 2017: After the weekend, patient continued to progress nicely. Physical therapy worked with patient during the hospital stay and over the weekend. His strength has improved and he would like to be discharged home. Believe this is reasonable as his strength has improved dramatically. He is being given a quad cane for stabilization at discharge. His pacemaker was interrogated this morning and found to be working appropriately. He did have several bursts of atrial fibrillation. I spent with Dr. Blake and he has recommended Eliquis at discharge. Technically, patient fits into the 5 mg twice daily regimen. He was previously considered a high falls risk however, now that his bradycardia has resolved he is at less of a risk. We are arranging for home health with physical therapy to take place. Also, he will need the following labs drawn in 1 week: BMP, magnesium, CBC. I will have phase labs faxed to Dr. Blake at [facility]. 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 He sees Dr. Aurea Cisneros at the [facility] here in [place] for primary care needs. I will verify she gets a copy of this discharge summary. I will give him an appointment to see Dr. Blake in approximately 2-3 weeks. Having felt him at maximal medical therapy, patient is being discharged home in stable condition. Discharge medications include the following: Eliquis 5 orally twice daily Aspirin 81 mg orally daily Atorvastatin 20 mg orally each evening Isosorbide mononitrate 30 mg orally daily Losartan 100 mg orally daily Magnesium oxide 400 mg orally daily Coreg 25 mg orally twice daily Pantoprazole 40 mg orally daily - Time spent with patient Time with patient DS: Greater than 30 minutes Diagnosis - Discharge Diagnosis (1) Hypertension Status: Chronic (2) Dyslipidemia Status: Chronic (3) Risk for falls Status: Chronic (4) Chest pain Status: Resolved (5) Third degree AV block Status: Resolved (6) Pacemaker Status: Resolved (7) CAD (coronary artery disease) Status: Chronic (8) Atrial fibrillation Status: Acute Specialty Discharge - Follow Up or Referrals Follow up with: Vern Blake MD [Physician] - (2-3 weeks. EKG) Aurea Cisneros M.D. [Physician] - (1-2 weeks ) Discharge Plan - Discharge Data Disposition: Disch To Home/Self Care Condition at Discharge: Stable Discharge Diet: heart healthy Activity: other (Post cath and post pacemaker expectations) Hygiene: other (Post pacemaker expectation) Weight Bearing at Discharge: other (Post pacemaker expectation) Driving: other (Post pacemaker expectations) Contact your physician if you experience:: fever over 101, Difficulty voiding, Redness or swelling, Nausea/Vomiting, Shortness of breath, Bleeding, pain uncontrolled by pain medications - Discharge Medications New Apixaban [Eliquis] 5 mg PO BID #60 tablet Continue Omeprazole 20 mg PO DAILY Triamcinolone Acetonide [Triamcinolone 0.1% Cream] 1 inch TOP BID Tiotropium Inhalation [Spiriva Handihaler] 18 mcg INH DAILY Nitroglycerin 1 tablet SL TID PRN MDD 0.9 PRN Reason: Chest Pain Magnesium Oxide 420 mg PO DAILY Losartan Potassium [Cozaar] 100 mg PO DAILY Isosorbide Mononitrate [Isosorbide Mononitrate ER] 30 mg PO DAILY Docusate Sodium Cap [Colace Cap] 1 tablet PO DAILY Diclofenac Sodium [Diclofenac Sodium 1% Gel] 4 gram TOP BID Cyanocobalamin (Vitamin B-12) [Vitamin B-12] 1,000 mcg PO DAILY Atorvastatin Calcium 20 mg PO DAILY Aspirin [Aspirin EC] 81 mg PO DAILY Fluticasone 50 Mcg Nasal [place] [Flonase Nasal [place]] 1 spray BOTH NARES DAILY Loratadine Tab [Claritin Tab] 1 tablet PO DAILY Carvedilol 25 mg PO BID Albuterol Inhaler [Proventil Inhaler] 2 puffs INH Q6HR PRN PRN Reason: Shortness Of Breath/Wheezing - Follow Up or Referral - Forms/Instructions Instructions: Left Heart Catheterization (DC), Pacemaker (DC), How to Use a Sling (GEN) Additional Discharge Instructions: Please have home health draw the following labs on Friday, February 03, 2017: BMP, magnesium, CBC. Please fax these results to Dr. Blake at [facility] Exam - Constitutional Vitals: Period Temp Pulse Resp BP Sys/Barry Pulse Ox Last 24 Hr 97.2 F-99.6 F 60-66 16-18 98-139/52-71 93-98 Discharge Results Labs on day of discharge: Labs from last 24 hours 01/28/17 01/28/17 03:55 03:55 WBC 8.3 RBC 3.52 L Hgb 10.5 L Hct 31.5 L MCV 89.5 MCH 30 MCHC 33.3 RDW 12.9 Plt Count 152 MPV 11.1 Neut % (Auto) 49.2 Lymph % (Auto) 21.4 [place] % (Auto) 11.1 Eos % (Auto) 17.6 H Baso % (Auto) 0.2 Neut # (Auto) 4.1 Lymph # (Auto) 1.8 [place] # (Auto) 0.9 H Eos # (Auto) 1.5 H Baso # (Auto) 0.0 Total Counted 100 Immature Gran % 0.5 Nucleated RBC % 0.0 Immature Gran # 0.04 Segmented Neutrophils 58 Lymphocytes 20 Monocytes 7 Eosinophils 14 H Basophils 1.0 H Nucleated RBCs # 0.00 Platelet Estimate Adequate Hypochromasia 1+ Microcytosis 1+ Sodium 140 Potassium 4.3 Chloride 105 Carbon Dioxide 26 Anion Gap 13.3 BUN 24 H Creatinine 0.80 GFR Calculation 161 BUN/Creatinine Ratio 30.00 H Glucose 98 Calculated Osmolality 282.4 Calcium 7.5 L Magnesium 2.0 - Imaging and Cardiology Cardiology Procedure: report reviewed by Procedure: Chest x-ray: report reviewed by wy DS: Provider Date of admission: 01/22/17 12:43 Primary care physician: . No PCP Attending physician on admission: Coby Thorne, Consults: 01/24/17 14:00 Consult to Physical Therapy [CONS] Routine Reason for Physical Therapy: Evaluate and Treat OT [Consult to Occupational Therapy] [CONS] Routine Reason for Occupational Therapy: Evaluate and Treat 01/25/17 08:51 Consult to Case Mgmt/Social Srvs [CONS] Routine Reason for Case Mgmt/Social Srvs: Swingbed/SNF/Alf Consult Comment: pLEASE dc TODAY 01/25/17 16:45 Consult to Physical Therapy [CONS] Routine Reason for Physical Therapy: Weakness Consult Comment: please work with pt over weekend for poss dc home on saturday01/28/17 10:25 Consult to Case Mgmt/Social Srvs [CONS] Routine Reason for Case Mgmt/Social Srvs: Home Health Other Consult Comment: PT and nursing services. Discharging clinician: Terrie Bowden NP Expected date of discharge: 01/28/17
[2017-01-28] MEDS ORDERED: APIXABAN 5 MG TABLET PO SCH (21:00)
== END 2017-01-28 16:15 | disposition home or self-care (01) | DRG 243 ==
LOC: N.ED 08:44 → N.EDINP 08:44 → OBSVTOIN 10:00 → INTOOBSV 10:00 → N.CC 10:23 → N.TELEN 01-24 15:39 → N.CC 01-24 15:43 → N.TELEN 01-24 16:52
PROVIDERS: ADMIT Internal Medicine Cardiovascular Disease; ATTEND Internal Medicine Cardiovascular Disease
PROC: CLCCHCL (ICD-10-PCS; 2017-01-22 11:15)

== ENCOUNTER 2017-12-19 13:41 | Inpatient (IN) ==
[2017-12-19] MEDS ORDERED: FUROSEMIDE 100 MG/10 ML VIAL IV STA (14:00)
[2017-12-19] MEDS ORDERED: FUROSEMIDE 100 MG/10 ML VIAL ONE (14:34)
[2017-12-19 15:09] LABS: Basophils % 0.2 % (0.0-0.8); Eosinophils # 0.4 10*3/uL (0.0-0.87); Eosinophils % 3.9 % (0.00-10.9); Hematocrit 30.3 VOL% (42.0-52.0); Hemoglobin 10.2 GM/DL (14.0-18.0); Immature Granulocytes % 0.7 %; Immature Granulocytes Absolute 0.07 #; Lymphocytes # 1.5 10*3/uL (1.4-4.0); Lymphocytes % 15.4 % (21.2-54.2); Mean Corpuscular HGB Conc 33.7 GM/DL (32-36); Mean Corpuscular Hemoglobin 30 PG (27-34); Mean Corpuscular Volume 89.6 FL (87-102); Mean Platelet Volume 10.5 FL (9.6-12.0); Monocytes # 0.6 10*3/uL (0.11-0.8); Monocytes % 5.9 % (1.7-12.7); Neutrophils # 7.2 10*3/uL (1.4-7.4); Neutrophils % 73.9 % (38.7-73.9); Platelet Count 288 T/CUMM (130-400); Red Blood Count 3.38 MC/CUMM (3.8-5.5); Red Cell Distribution Width 12.9 % (9.3-17.3); White Blood Count 9.7 T/CUMM (4-12)
[2017-12-19 15:18] LABS: Albumin 2.1 G/DL (3.4-5.0); Bilirubin,Total 0.7 MG/DL (0.2-1.0); Calcium 8.2 MG/DL (8.5-10.1); Osmolality,Calculated 270.4 MOS/KG (273-304); Potassium 4.4 MMOL/L (3.5-5.1); Total Protein 6.7 G/DL (6.4-8.3)
[2017-12-19] MEDS ORDERED: diphenhydrAMINE CAP 25 MG CAPSULE PO PRN (15:20)
[2017-12-19] MEDS ORDERED: ACETAMINOPHEN 325 MG TABLET PO PRN (15:20)
[2017-12-19] MEDS ORDERED: ONDANSETRON 4 MG/2 ML VIAL IV PRN (15:20)
[2017-12-19] MEDS ORDERED: MORPHINE 2 MG/1 ML SYRINGE IV PRN (15:20)
[2017-12-19] MEDS ORDERED: guaiFENesin/DM ER 600-30 MG TABLET PO PRN (15:20)
[2017-12-19 16:07] LABS: Risk Ratio 3.75; Thyroid Stimulating Hormone 0.908 uIU/ml (0.358-3.74); VLDL CHOLESTEROL 13.8 MG/DL
[2017-12-19] MEDS ORDERED: NITROGLYCERIN SL PRN (17:42)
[2017-12-19] MEDS: ASPIRIN EC 81 MG TABLET PO SCH (17:55)
[2017-12-19] MEDS: LOSARTAN 50 MG TABLET PO SCH (17:55)
[2017-12-19] MEDS: ATORVASTATIN 20 MG TABLET PO SCH (17:56)
[2017-12-19] MEDS: ISOSORBIDE MONONITRATE 30 MG TABLET PO SCH (17:56)
[2017-12-19] MEDS: MAGNESIUM OXIDE 400 MG TABLET PO SCH (17:56)
[2017-12-19 19:27] LABS: Apearance,Urine CLEAR (Clear); Bilirubin,Urine Negative (Negative); Blood, Urine Small mg/dL (Negative); Glucose,Urine (UA) Negative (Negative); Hyaline Casts,Urine 16 /LPF (0-3); Ketones,Urine Negative (Negative); Mucus,Urine Occasional /LPF (Occasional); Nitrite,Urine Negative (Negative); Protein,Urine Negative; RBC,Urine 2 /HPF (0-4); Squamous Epithelial Cell,Urine Occasional /HPF (0-10); Urine Color Straw (Yellow); Urine Specific Gravity 1.006 (1.001-1.035); Urine Urobilinogen < 2.0 EU/DL (0.2-1.0); WBC,Urine 1 /HPF (0-6)
[2017-12-19] MEDS: APIXABAN 5 MG TABLET PO SCH (21:07)
[2017-12-19] MEDS: CARVEDILOL 25 MG TABLET PO SCH (21:08)
[2017-12-20] MEDS: FUROSEMIDE 40 MG/4 ML VIAL IV SCH ×2 (03:16→08:04)
[2017-12-20] MEDS: PANTOPRAZOLE 40 MG TABLET PO SCH ×2 (03:16→08:03)
[2017-12-20] MEDS: IPRATROPIUM 500 MCG/2.5 ML NEB RESP TX SCH ×3 (03:16→10:36)
[2017-12-20 06:22] LABS: Basophils % 0.2 % (0.0-0.8); Eosinophils % 9.8 % (0.00-10.9); Hematocrit 27.9 VOL% (42.0-52.0); Hemoglobin 9.5 GM/DL (14.0-18.0); Immature Granulocytes % 0.5 %; Immature Granulocytes Absolute 0.05 #; Lymphocytes # 1.7 10*3/uL (1.4-4.0); Mean Corpuscular HGB Conc 34.1 GM/DL (32-36); Mean Corpuscular Hemoglobin 30 PG (27-34); Mean Corpuscular Volume 89.1 FL (87-102); Mean Platelet Volume 10.1 FL (9.6-12.0); Monocytes # 0.7 10*3/uL (0.11-0.8); Monocytes % 6.8 % (1.7-12.7); Neutrophils # 6.5 10*3/uL (1.4-7.4); Neutrophils % 65.7 % (38.7-73.9); Platelet Count 292 T/CUMM (130-400); Red Blood Count 3.13 MC/CUMM (3.8-5.5); Red Cell Distribution Width 12.8 % (9.3-17.3); White Blood Count 9.9 T/CUMM (4-12)
[2017-12-20 06:33] LABS: INR 1.2; PT Patient Result 12.5 SECS
[2017-12-20 06:56] LABS: Calcium 7.7 MG/DL (8.5-10.1); Osmolality,Calculated 278.7 MOS/KG (273-304); Potassium 4.2 MMOL/L (3.5-5.1)
[2017-12-20] MEDS: ATORVASTATIN 20 MG TABLET PO SCH (08:03)
[2017-12-20] MEDS: ASPIRIN EC 81 MG TABLET PO SCH (08:03)
[2017-12-20] MEDS: MAGNESIUM OXIDE 400 MG TABLET PO SCH (08:03)
[2017-12-20] MEDS: CARVEDILOL 25 MG TABLET PO SCH (08:03)
[2017-12-20] MEDS: ISOSORBIDE MONONITRATE 30 MG TABLET PO SCH (08:03)
[2017-12-20] MEDS: LOSARTAN 50 MG TABLET PO SCH (08:03)
[2017-12-20] MEDS: APIXABAN 5 MG TABLET PO SCH (08:03)
[2017-12-20 14:58] VITALS: BP 110/61
== END 2017-12-20 14:45 | disposition home or self-care (01) | DRG 308 ==
LOC: EDBD → EDUNIT# → N.ED 13:41 → N.EDINP 14:27 → N.TELEN 17:25
PROVIDERS: ADMIT Family Medicine; ATTEND Family Medicine

== ENCOUNTER 2017-12-24 16:02 | Inpatient (IN) ==
[2017-12-24 16:50] LABS: Basophils # 0.1 10*3/uL (0.0-0.2); Basophils % 0.3 % (0.0-0.8); Eosinophils # 0.8 10*3/uL (0.0-0.87); Eosinophils % 5.3 % (0.00-10.9); Hematocrit 37.1 VOL% (42.0-52.0); Hemoglobin 12.4 GM/DL (14.0-18.0); Immature Granulocytes % 0.7 %; Lymphocytes # 2.4 10*3/uL (1.4-4.0); Lymphocytes % 16.2 % (21.2-54.2); Mean Corpuscular HGB Conc 33.4 GM/DL (32-36); Mean Corpuscular Hemoglobin 30 PG (27-34); Mean Corpuscular Volume 89.8 FL (87-102); Mean Platelet Volume 9.7 FL (9.6-12.0); Monocytes # 0.9 10*3/uL (0.11-0.8); Monocytes % 6.3 % (1.7-12.7); Neutrophils # 10.5 10*3/uL (1.4-7.4); Neutrophils % 71.2 % (38.7-73.9); Platelet Count 506 T/CUMM (130-400); Red Blood Count 4.13 MC/CUMM (3.8-5.5); Red Cell Distribution Width 12.8 % (9.3-17.3); White Blood Count 14.7 T/CUMM (4-12)
[2017-12-24 17:18] LABS: Albumin 2.8 G/DL (3.4-5.0); Bilirubin,Total 0.6 MG/DL (0.2-1.0); Calcium 8.7 MG/DL (8.5-10.1); Osmolality,Calculated 275.8 MOS/KG (273-304); Potassium 4.1 MMOL/L (3.5-5.1); Total Protein 7.3 G/DL (6.4-8.3)
[2017-12-24 17:24] LABS: Troponin I Only 0.021 NG/ML (0.00-0.045)
[2017-12-24] MEDS ORDERED: LEVOFLOXACIN INJ 750 MG in PREMIX 1 EACH IV STA (19:57)
[2017-12-24] MEDS ORDERED: FUROSEMIDE 20 MG/2 ML VIAL IV STA (19:57)
[2017-12-24] MEDS ORDERED: LEVOFLOXACIN INJ 150 ML IV ONE (20:14)
[2017-12-24] MEDS ORDERED: FUROSEMIDE 20 MG/2 ML VIAL ONE (20:14)
[2017-12-25] MEDS ORDERED: APIXABAN 5 MG TABLET PO SCH (00:14)
[2017-12-25] MEDS ORDERED: NITROGLYCERIN SL 0.4 MG TABLET SL PRN (00:14)
[2017-12-25] MEDS ORDERED: ACETAMINOPHEN 325 MG TABLET PO PRN (00:14)
[2017-12-25] MEDS ORDERED: ASPIRIN EC 81 MG TABLET PO SCH (00:14)
[2017-12-25] MEDS ORDERED: CARVEDILOL 25 MG TABLET PO SCH (00:14)
[2017-12-25] MEDS ORDERED: ONDANSETRON 4 MG/2 ML VIAL IV PRN (00:14)
[2017-12-25] MEDS: ALBUTEROL/IPRATROPIUM 3 ML NEB RESP TX SCH ×2 (02:39→15:35)
[2017-12-25 06:20] LABS: Basophils % 0.3 % (0.0-0.8); Eosinophils # 0.3 10*3/uL (0.0-0.87); Eosinophils % 3.1 % (0.00-10.9); Hematocrit 31.4 VOL% (42.0-52.0); Hemoglobin 10.9 GM/DL (14.0-18.0); Immature Granulocytes % 0.5 %; Immature Granulocytes Absolute 0.05 #; Lymphocytes # 1.9 10*3/uL (1.4-4.0); Lymphocytes % 18.3 % (21.2-54.2); Mean Corpuscular HGB Conc 34.7 GM/DL (32-36); Mean Corpuscular Hemoglobin 31 PG (27-34); Mean Platelet Volume 10.1 FL (9.6-12.0); Monocytes # 0.7 10*3/uL (0.11-0.8); Neutrophils # 7.2 10*3/uL (1.4-7.4); Neutrophils % 70.8 % (38.7-73.9); Platelet Count 433 T/CUMM (130-400); Red Blood Count 3.57 MC/CUMM (3.8-5.5); Red Cell Distribution Width 12.8 % (9.3-17.3); White Blood Count 10.2 T/CUMM (4-12)
[2017-12-25 07:08] LABS: Risk Ratio 3.28; Thyroid Stimulating Hormone 0.878 uIU/ml (0.358-3.74); VLDL CHOLESTEROL 12.6 MG/DL
[2017-12-25] MEDS: IPRATROPIUM 500 MCG/2.5 ML NEB RESP TX SCH ×4 (07:42→19:33)
[2017-12-25] MEDS: SODIUM CHLORIDE 0.9% 1,000 ML IV SCH (07:43)
[2017-12-25 09:25] LABS: Calcium 8.4 MG/DL (8.5-10.1); Osmolality,Calculated 275.8 MOS/KG (273-304); Potassium 4.3 MMOL/L (3.5-5.1); Troponin I Only 0.021 NG/ML (0.00-0.045)
[2017-12-25] MEDS: methylPREDNISolone SOD SUC 40 MG/1 ML VIAL IV SCH ×2 (10:30→16:28)
[2017-12-25] MEDS: PANTOPRAZOLE 40 MG TABLET PO SCH (10:30)
[2017-12-25] MEDS: FUROSEMIDE 40 MG TABLET PO SCH (10:30)
[2017-12-25] MEDS: ENOXAPARIN 40 MG/0.4 ML SYRINGE SUBCUT SCH (10:31)
[2017-12-25] MEDS: APIXABAN 5 MG TABLET PO SCH ×2 (10:31→22:28)
[2017-12-25] MEDS: CARVEDILOL 25 MG TABLET PO SCH ×2 (10:31→22:28)
[2017-12-25] MEDS: ISOSORBIDE MONONITRATE 30 MG TABLET PO SCH (10:31)
[2017-12-25] MEDS: FLUTICASONE 50 MCG NASAL SPRAY 16 GM BOTTLE BOTH NARES SCH (10:32)
[2017-12-25] MEDS: CEFEPIME 1,000 MG in SYRINGE 1 EACH IV SCH (10:32)
[2017-12-25] MEDS: OLOPATADINE 0.1% OPH SOLN 5 ML BOTTLE BOTH EYES SCH (22:28)
[2017-12-25] MEDS: ASPIRIN EC 81 MG TABLET PO SCH (22:28)
[2017-12-25] MEDS: LEVOFLOXACIN INJ 750 MG in PREMIX 1 EACH IV SCH (22:28)
[2017-12-26] MEDS: methylPREDNISolone SOD SUC 40 MG/1 ML VIAL IV SCH ×3 (01:05→16:20)
[2017-12-26] MEDS: CEFEPIME 1,000 MG in SYRINGE 1 EACH IV SCH ×3 (01:06→22:00)
[2017-12-26] MEDS: SODIUM CHLORIDE 0.9% 1,000 ML IV SCH (03:46)
[2017-12-26] MEDS: IPRATROPIUM 500 MCG/2.5 ML NEB RESP TX SCH ×4 (07:16→19:03)
[2017-12-26] MEDS: ENOXAPARIN 40 MG/0.4 ML SYRINGE SUBCUT SCH (09:36)
[2017-12-26] MEDS: FUROSEMIDE 40 MG TABLET PO SCH (09:37)
[2017-12-26] MEDS: ISOSORBIDE MONONITRATE 30 MG TABLET PO SCH (09:37)
[2017-12-26] MEDS: PANTOPRAZOLE 40 MG TABLET PO SCH (09:37)
[2017-12-26] MEDS: CARVEDILOL 25 MG TABLET PO SCH ×2 (09:38→22:00)
[2017-12-26] MEDS: APIXABAN 5 MG TABLET PO SCH ×2 (09:38→21:59)
[2017-12-26] MEDS: FLUTICASONE 50 MCG NASAL SPRAY 16 GM BOTTLE BOTH NARES SCH (09:39)
[2017-12-26] MEDS: OLOPATADINE 0.1% OPH SOLN 5 ML BOTTLE BOTH EYES SCH ×2 (09:45→22:00)
[2017-12-26] MEDS: LEVOFLOXACIN INJ 750 MG in PREMIX 1 EACH IV SCH (20:14)
[2017-12-26] MEDS: ASPIRIN EC 81 MG TABLET PO SCH (21:59)
[2017-12-27] MEDS: methylPREDNISolone SOD SUC 40 MG/1 ML VIAL IV SCH ×3 (01:21→18:04)
[2017-12-27] MEDS: IPRATROPIUM 500 MCG/2.5 ML NEB RESP TX SCH ×2 (07:21→11:27)
[2017-12-27] MEDS: SODIUM CHLORIDE 0.9% 1,000 ML IV SCH (10:52)
[2017-12-27] MEDS: ENOXAPARIN 40 MG/0.4 ML SYRINGE SUBCUT SCH (10:52)
[2017-12-27] MEDS: FUROSEMIDE 40 MG TABLET PO SCH (10:52)
[2017-12-27] MEDS: PANTOPRAZOLE 40 MG TABLET PO SCH (10:53)
[2017-12-27] MEDS: FLUTICASONE 50 MCG NASAL SPRAY 16 GM BOTTLE BOTH NARES SCH (10:53)
[2017-12-27] MEDS: CARVEDILOL 25 MG TABLET PO SCH (10:53)
[2017-12-27] MEDS: ISOSORBIDE MONONITRATE 30 MG TABLET PO SCH (10:53)
[2017-12-27] MEDS: OLOPATADINE 0.1% OPH SOLN 5 ML BOTTLE BOTH EYES SCH (10:53)
[2017-12-27] MEDS: APIXABAN 5 MG TABLET PO SCH (10:53)
[2017-12-27] MEDS: CEFEPIME 1,000 MG in SYRINGE 1 EACH IV SCH (10:59)
[2017-12-27 12:40] VITALS: BP 123/63
== END 2017-12-27 15:52 | disposition home health service (06) | DRG 193 ==
LOC: N.ED 16:02 → N.EDINP 20:24 → N.5E 21:27
PROVIDERS: ADMIT Internal Medicine; ATTEND Internal Medicine